=== PATIENT | female | born 1940 | race Caucasian/White ===

== ENCOUNTER 2017-01-01 14:31 | Inpatient (IN) ==
[2017-01-01] MEDS ORDERED: Naloxone 0.4 MG/ML INJ IVP PRN (17:31)
[2017-01-01] MEDS ORDERED: Ondansetron 4 MG/2 ML VIAL IVP PRN (17:31)
[2017-01-01] MEDS ORDERED: Acetaminophen 325 MG TABLET PO PRN (17:31)
[2017-01-01] MEDS ORDERED: *HR* HYDROcodone/Acet 5/325 mg TABLET PO PRN (17:31)
--- NOTE | 2017-01-01 17:45 | Internal Med History&Physical ---
<LilianasaraiisabellePerez nunes - Last Filed: 01/01/17 18:32> Date of Encounter: 01/01/17 Time of Encounter: 16:30 Assessment and Plan (1) Atrial fibrillation with RVR Status: Acute Acute on chronic atrial fibrillation w/RVR. Pt. reports Afib is paroxysmal. Rate in high 120s on admission. Denies currently taking any medication for rate control. Continuous cardiac telemetry. Cardizem drip started for rate control and rate is currently 10. Will titrate drip level as needed. Pt. at high risk for cardiac event based on current Afib w/RVR, acute exacerbation of CHF, current sx and hx, and risk factors. Inpatient. (2) Acute exacerbation of CHF (congestive heart failure) Status: Acute Acute exacerbation of CHF. BNP 498 on admission. Pt. denies hx of CHF but has hx of CAD and previous open-heart surgery. Reports SOB and is currently in Afib w/RVR. Will continue patient's hydrochlorothiazide. Monitor I&O. 1.5L daily fluid restriction. Continuous cardiac telemetry. Supplemental O2w/titration and SpO2 monitoring. Echocardiogram ordered. Qualifiers: Congestive heart failure type: unspecified congestive heart failure type Qualified Code(s): I50.9 - Heart failure, unspecified (3) Elevated troponin Status: Acute Acutely elevated troponin level on admission of 0.04. Pt. reports some chest pressure w/current sx of palpitations and RVR. Echocardiogram ordered. Continuous cardiac telemetry. Will trend troponin x2. Will consider cardiology consult based on echo results. (4) Dizziness Status: Acute Acute dizziness with SOB most likely d/t current Afib w/RVR. Falls/safety precautions. Supplemental O2 w/titration and SpO2 monitoring. Bilateral carotid Doppler duplex imaging ordered. (5) CAD (coronary artery disease) Status: Chronic Hx of chronic CAD. Pt. reports open-heart surgery three years ago. Continuous cardiac telemetry. Continue patient's Cozaar, metoprolol, hydrochlorothiazide, Crestor, and Coumadin with pharmacy dosing. Add aspirin therapy 81 mg daily. Qualifiers: Coronary Disease-Associated Artery/Lesion type: [place] artery [place] vs. transplanted heart: [place] heart Associated angina: angina presence unspecified Qualified Code(s): I25.10 - Atherosclerotic heart disease of [place] coronary artery without angina pectoris (6) HLD (hyperlipidemia) Status: Chronic Hx of chronic HLD. Lipid panel in a.m. labs. Continue pts. Crestor. Qualifiers: Hyperlipidemia type: pure hypercholesterolemia Qualified Code(s): E78.00 - Pure hypercholesterolemia, unspecified (7) HTN (hypertension) Status: Chronic Hx of chronic HTN. Monitor pt. and VS. Continue pts. Cozaar, metoprolol, and hydrochlorothiazide. Qualifiers: Hypertension type: essential hypertension Qualified Code(s): I10 - Essential (primary) hypertension (8) Thyroid disease Status: Chronic Hx of chronic thyroid disease. TSH ordered. Continue pts. Synthroid. (9) DVT prophylaxis Status: Acute Continue pts. Coumadin w/pharmacy dosing for DVT prophylaxis. Monitor pt. for signs of bleeding. Internal Medicine - H&P: HPI Chief complaint: Palpitations/SOB/Dizziness Admitted From: Emergency Dept Plans for Post Hospital Care: Home History of present illness: Ms. Person is a 76 year old female with medical hx of atrial fibrillation, coronary artery disease, DVT and PE (40 years ago) hyperlipidemia, hypertension , and thyroid disease presents with the ED with chief complaint of heart palpitations, bilateral leg weakness, shortness of breath, and dizziness for the past 3 days. Pt. reports having open heart surgery 3 years ago after being diagnosed with atrial fibrillation. States she is followed by Dr. Baires at [facility]. She states her atrial fibrillation is chronic and paroxysmal. Patient denies recent illness, fever, chills, nausea, vomiting, abdominal pain, diarrhea, constipation, headache, vision changes, unusual bleeding, pre-syncope , or syncope. Past Med Surg Social Fam HX - Past Medical History Source: patient, old records reviewed Medical history: atrial fibrillation, coronary artery disease, DVT (40 years ago ), hyperlipidemia, hypertension, pulmonary embolus (40 years ago), thyroid disease Psychiatric history: no psych history - Past Surgical History Surgical History: coronary bypass (CABG) - Social History Smoking Status: Former smoker Packs per day: 1 PPD - Reports quitting 6 years ago Smokeless Tobacco Status: No Alcohol use: none Drug use: none Occupational status: previously employed Current living situation: Home Activity Level: Uses cane/walker Recent Out of Country Travel Within the Last 8 Weeks: No Exposure or Possible Exposure to Illness During Travel: No - Family History Father Race: Family Member Ethnicity: Non- Living Status: Age at : 87 Cause of : Pneumonia Hx Family Respiratory Disorders: Yes (Pneumonia) Mother Race: Family Member Ethnicity: Non- Living Status: Age at : 81 Cause of : Pneumonia Hx Family Respiratory Disorders: Yes (Pneumonia) Brother Race: Family Member Ethnicity: Non- Living Status: Age at : 56 Cause of : Lung cancer Hx Family Cancer: Yes (Lung) Sister Race: Family Member Ethnicity: Non- Living Status: Age at : 65 Cause of : Polycystic kidney disease Hx Family Genitourinary Disorders: Yes (PKD) Internal Medicine - H&P: Meds Losartan [Cozaar] 50 mg PO DAILY 08/15/16 [History] Metoprolol Succinate 50 mg PO DAILY 08/15/16 [History] Rosuvastatin Calcium [Crestor] 10 mg PO DAILY 08/15/16 [History] Warfarin [Coumadin] 4 mg PO 1800 08/15/16 [History] Cholecalciferol (D-3) [Vitamin D] 2,000 unit PO DAILY 01/01/17 [History] Levothyroxine Sodium [Levo-T] 100 mcg PO DAILY 01/01/17 [History] Mv,Ca,Fe,Min/FA/[place]/Caff [One Daily Tablet] 1 tab PO DAILY 01/01/17 [History ] hydroCHLOROthiazide [Hydrochlorothiazide] 25 mg PO DAILY 01/01/17 [History] Furosemide [Lasix] 20 mg PO DAILY #30 tablet 01/04/17 [Rx] Metoprolol XL (24 HR) Succ [Toprol Xl] 75 mg PO DAILY #90 tab.er.24h 01/04/17 [ Rx] 3 Allergy/AdvReac Type Severity Reaction Status Date / Time Rjrvsey-Fov-Rhu Reductase AdvReac Weakness Verified 01/01/17 20:43 Inhibitor [Statins] All Systems PM: A 10-system review of systems was performed and is negative for pertinent findings except as documented above in the HPI. - Constitutional Constitutional: as per HPI, weakness (Bilateral leg weakness), no chills, no fever(s), no night sweats - EENT Eyes: no change in vision, no discharge, no pain, no photophobia Ears: no ear discharge, no ear pain, no tinnitus Nose, mouth and throat: no dysphagia, no nasal discharge, no neck pain, no sore throat - Breasts Breasts: as per HPI - Cardiovascular Cardiovascular ROS IM: as per HPI, chest pain (Pressure), dyspnea, dyspnea on exertion, irregular heart rhythm, lightheadedness, palpitations - Respiratory Respiratory: as per HPI, dyspnea, dyspnea on exertion - Gastrointestinal Gastrointestinal: no abdominal pain, no diarrhea, no hematemesis, no hematochezia, no melena, no nausea, no vomiting - Genitourinary Genitourinary: no change in urinary stream, no dysuria, no flank pain, no hematuria Menstruation: as per HPI - Musculoskeletal Musculoskeletal ROS IM: no numbness, no tingling - Integumentary Integumentary IM: no rash, no unusual bruising - Neurological Neurological ROS: no confusion, no convulsions, no focal weakness, no numbness, no tingling, no tremor(s) - Psychiatric Psychiatric: as per HPI - Endocrine Endocrine IM: as per HPI - Hematologic/Lymphatic Hematologic/Lymphatic: no easy bruising - Allergic/Immunologic Allergic/Immunologic: as per HPI - Constitutional Vitals: Temp Pulse Resp BP Pulse Ox 97.3 F L 127 18 118/90 95 01/01/17 16:20 01/01/17 17:00 01/01/17 17:00 01/01/17 17:00 01/01/17 17:00 General appearance: Present: cooperative, A&O X 3, morbidly obese, pleasant, no acute distress, answers questions appropriately - Head Head exam: Present: atraumatic, normal inspection, normocephalic - Eye Eye exam: Present: PERRL, conjuntiva pink, sclera anicteric Pupils: Present: PERRL - ENT ENT exam: Present: normal exam, normal external ear exam - Neck Neck exam general surgery: Present: normal inspection, supple, trachea midline. Absent: lymphadenopathy - Respiratory Respiratory exam: Present: CTAB. Absent: accessory muscle use, rales, rhonchi, wheezes - Cardiovascular Cardiovascular exam: Present: irregular rhythm - GI/Abdominal GI/Abdominal exam: Present: normal bowel sounds, soft, no peritoneal signs. Absent: distended, tenderness - Rectal Rectal exam: Present: deferred - Additional comments: exam deferred. - Extremities Exam Extremities exam: Present: warm, radial pulses palpable and symmetrical. Absent : calf tenderness, cyanotic, pedal edema - Back Exam Back exam: Present: normal inspection - Neurological Exam Neurological exam: Present: CN II-XII intact, oriented X3, no focal deficits. Absent: pronater drift, facial droop, speech deficit - Psychiatric Psychiatric exam: Present: normal affect, normal mood - Skin Skin exam: Present: dry, intact Additional comments: Healing skin ulcer of the left lower extremity which pt. states she has had a lot of problems with in the past. States wound was deep. Internal Med - H&P Results - Diagnostic Studies Chest x-ray Additional comments: XR/XR chest 1V portable IMPRESSION: No acute cardiopulmonary abnormality. <Gutierrez Alvarez P - Last Filed: 01/05/17 12:13> Date of Encounter: 01/05/17 Internal Medicine - H&P: HPI History of present illness: Ms. Person is a 76 year old female All Systems PM: A 10-system review of systems was performed and is negative for pertinent findings except as documented above in the HPI. - Constitutional Vitals: Temp Pulse Resp BP Pulse Ox 98.2 F 68 18 111/62 93 01/04/17 07:03 01/04/17 07:56 01/04/17 07:03 01/04/17 07:03 01/04/17 07:03 Internal Med - H&P Results - Labs CBC & Chem 7: 01/04/17 04:00 01/04/17 04:00 - Impressions ITS Impressions Echocardiogram 01/02/17 07:00 Impressions: LVEF 55%. Normal LV chamber size and function. Mild to moderate concentric left ventricular hypertrophy. Indeterminate diastolic function. Right ventricle was not well visualized. Grossly, it appears mildly dilated with normal function. Bioprostetic aortic valve per reports. Grossly, appears well seated in the LVOT. Leaflets not well visualized. No aortic regurgitation. No aortic stenosis. Mean gradient 5 mmHg. No evidence of pulmonary hypertension. Left Ventricular Wall Motion: Rest Echo Findings All wall segments showed normal motion. Findings: Study Quality * Technically sub-optimal due to poor echocardiographic windows. ECG Findings * Atrial fibrillation. Left Ventricle * LVEF 55%. * Normal LV chamber size and function. * Mild to moderate concentric left ventricular hypertrophy. * Indeterminate diastolic function. Right Ventricle * Right ventricle was not well visualized. Grossly, it appears mildly dilated with normal function. Left Atrium * Moderately dilated left atrium. Right Atrium * Mildly dilated right atrium. Interatrial Septum * Interatrial septum not well evaluated. Aortic Valve * Bioprostetic aortic valve per reports. Grossly, appears well seated in the LVOT. Leaflets not well visualized. * No aortic regurgitation. * No aortic stenosis. Mean gradient 5 mmHg. Mitral Valve * Moderate posterior mitral annular calcification. * Trace mitral regurgitation. * No mitral stenosis. Tricuspid Valve * Normal tricuspid valve structure and function. * Trace tricuspid regurgitation. * No evidence of pulmonary hypertension. Pulmonic Valve * Normal pulmonic valve structure and function. * Trace pulmonic regurgitation. Aorta * Normally sized aortic root. Pericardium * The pericardium appears normal. IVC * Normal IVC dimensions and inspiratory collapse. Pulmonary Artery * Normal visualized portions of the main pulmonary artery. - Attending Attestation I examined this patient and my medical decision-making was reviewed with the Resident Physician/OUTER DIAMETER GRINDER. I agree with the documented findings, disposition and treatment plan as described except to the extent set forth below. agree with plan
[2017-01-01] MEDS ORDERED: Warfarin perPT PO PRN (18:00)
[2017-01-01] MEDS ORDERED: *HR* Warfarin 4 MG TABLET PO SCH (18:46)
[2017-01-01] MEDS: Aspirin Enteric Coated 81 MG Tablet PO SCH (18:48)
[2017-01-01] MEDS ORDERED: *HR* Warfarin 2 MG TABLET PO ONE (18:54)
[2017-01-02] MEDS: dilTIAZem HCl 100 MG in D5% in Water 50 ML IVC SCH ×3 (00:06→16:22)
[2017-01-02 01:18] LABS: Basophils # 0.1 K/mcL (0.0-0.2); Basophils % 0.9 %; Eosinophils # 0.3 K/mcL (0.0-0.6); Eosinophils % 3.7 %; Hematocrit 42.1 % (35.3-44.9); Hemoglobin 13.6 g/dL (11.5-15.4); Immature Granulocytes % 0.4 % (0-4); Lymphocytes # 1.6 K/mcL (0.6-4.6); Lymphocytes % 17.3 %; Mean Corpuscular HGB Conc 32.3 g/dL (31.6-35.5); Mean Corpuscular Hemoglobin 29.6 pg (28.0-33.3); Mean Corpuscular Volume 91.5 fL (83.0-100.0); Monocytes # 0.8 K/mcL (0.0-1.3); Monocytes % 9.1 %; Neutrophils # 6.2 K/mcL (1.6-8.9); Platelet Count 187 K/mcL (140-400); Red Cell Distribution Width 15.4 % (11.5-14.5); Segmented Neutrophils % 68.6 %
[2017-01-02 01:21] LABS: INR 2.6; Prothrombin Time 29.1 Seconds (9.4-12.1)
[2017-01-02 01:23] LABS: Activated Partial Thrombo Time 34.4 Seconds (26.0-36.0)
[2017-01-02 01:29] LABS: Hemoglobin A1C 6.1 %
[2017-01-02 01:36] LABS: Alanine Aminotransferase 28 Units/L (0-55); Albumin 2.9 g/dL (3.5-5.0); Albumin/Globulin Ratio 0.9 (1.1-2.2); Alkaline Phosphatase 70 Units/L (38-126); Aspartate Amino Transferase 16 Units/L (5-34); BUN/Creatinine Ratio 19 (6-26); Bilirubin,Total 0.2 mg/dL (0.2-1.2); Blood Urea Nitrogen 18 mg/dL (7-20); Calcium 8.9 mg/dL (8.6-10.8); Carbon Dioxide 26 mEq/L (19-29); Chloride 105 mEq/L (98-109); Chol/HDL Ratio 3.6 (0-4.9); Cholesterol 126 mg/dL (< 200); Globulin 3.1 g/dL (2.4-3.5); Glucose 136 mg/dL (70-99); HDL Cholesterol 35 mg/dL (40-59); LDL Cholesterol,Calculated 62 mg/dL (0-99); Magnesium 1.8 mg/dL (1.6-2.6); Osmolality,Calculated 294 (280-300); Potassium 3.7 mEq/L (3.5-4.5); Sodium 140 mEq/L (136-145); Triglycerides 143 mg/dL (< 150); eGFR For African Americans > 60 (> 60); eGFR For Non-African Americans 57 (> 60)
[2017-01-02 01:53] LABS: Thyroid Stimulating Hormone 2.537 mcIU/mL (0.350-4.840)
[2017-01-02] MEDS: Aspirin Enteric Coated 81 MG Tablet PO SCH (07:50)
[2017-01-02] MEDS ORDERED: hydroCHLOROthiazide 25 MG TABLET PO SCH (09:00)
[2017-01-02] MEDS ORDERED: Metoprolol XL (24 HR) Succ 25 MG TAB.ER.24H PO SCH (09:00)
--- NOTE | 2017-01-02 10:34 | Internal Med Progress Note ---
<Jordi Davidson - Last Filed: 01/02/17 15:35> Date of Encounter: 01/02/17 Time of Encounter: 10:00 - Assessment and plan (1) Atrial fibrillation with RVR Current Visit: Yes Status: Acute Assessment and plan: ED course: 20mg IV push with transition to drip, currently 10mg/hr, RVR abated, currently tachycardic with irregular rhythm. Monitor with telemetry. Echocardiogram ordered. Cardiology consulted. (2) Acute exacerbation of CHF (congestive heart failure) Current Visit: Yes Status: Acute Assessment and plan: BNP 498 on admission. No known history of CHF. LVEF 55% Diastolic function read as indeterminate. Continuing HCTZ, on 1.5L daily fluid restriction. On 2L O2 NC Qualifiers: Congestive heart failure type: unspecified congestive heart failure type Qualified Code(s): I50.9 - Heart failure, unspecified (3) HLD (hyperlipidemia) Current Visit: Yes Status: Chronic Assessment and plan: On 10mg Crestor, has never been on 20mg as per hi-intensity AHA/ACC recommendations Consider increasing Crestor to 20mg; monitor clinically for myalgias. Qualifiers: Hyperlipidemia type: pure hypercholesterolemia Qualified Code(s): E78.00 - Pure hypercholesterolemia, unspecified; E78.0 - Pure hypercholesterolemia (4) HTN (hypertension) Current Visit: Yes Status: Chronic Qualifiers: Hypertension type: essential hypertension Qualified Code(s): I10 - Essential (primary) hypertension (5) Dizziness Current Visit: Yes Status: Acute Assessment and plan: Not currently symptomatic. Likely from the afib-RVR. Monitoring on telemetry, as above. (6) Thyroid disease Current Visit: Yes Status: Chronic Assessment and plan: Continue Synthroid 88mcg, pt currently euthyroid. (7) Elevated troponin Current Visit: Yes Status: Acute Assessment and plan: ED ECG showed st segment depression, likely demand ischemia (.04, .05, .05, .05) (8) CAD (coronary artery disease) Current Visit: Yes Status: Chronic Assessment and plan: Continue Cozaar, metoprolol, HCTZ, Crestor, coumadin. Now on ASA. Consider increase to Crestor if pt tolerates outpatient, pt denies trial of 20mg , no hx myalgias. Qualifiers: Coronary Disease-Associated Artery/Lesion type: [place] artery [place] vs. transplanted heart: [place] heart Associated angina: angina presence unspecified Qualified Code(s): I25.10 - Atherosclerotic heart disease of [place] coronary artery without angina pectoris (9) DVT prophylaxis Current Visit: Yes Status: Acute Assessment and plan: Coumadin w/ pharmacy to dose. No evidence of bleed on exam, labs. - Subjective Interval history: Ms. Person, 76F, past medical history of paroxysmal AFib diagnosed 3 years ago , anticoagulated on coumadin, presented with complaint of new onset palpitations and mild shortness of breath to ED yesterday. ECG showed afib with RVR, st depressions, likely demand ischemia, given 20mg IV Cardizem, on 10mg/hr now, no RVR, however, pt rate in 120s and irregular. Sees a Dr. Todd, cardiology, has her on Toprol 50mg. Pt reports no episodes like this before; has had Maze procedure 10/06/13 for AFib, at time considered resolved. During same surgery, aortic valve replaced due to aortic stenosis ([place] pericardial aortic valve). No known hx CHF, pt's BNP 498 on admission. Echo ordered. Today: pt is accompanied by son, denies shortness of breath, has not noticed any palpitations, is open to the idea of adding an antiarrhythmic to take at home, no worsening shortness of breath, no home O2, on 2L NC currently. - Constitutional Vitals: Temp Pulse Resp BP Pulse Ox 98.1 F 105 92 110/99 95 01/02/17 07:40 01/02/17 07:40 01/02/17 10:30 01/02/17 07:40 01/02/17 07:40 General appearance: Present: cooperative, A&O X 3, morbidly obese, pleasant, no acute distress, answers questions appropriately - Head Head exam: Present: atraumatic - Neck Neck exam general surgery: Present: full ROM - Respiratory Respiratory exam: Present: CTAB. Absent: rhonchi - Cardiovascular Cardiovascular exam: Present: irregular rhythm, +S1, +S2, tachycardia. Absent: JVD - Extremities Exam Extremities exam: Absent: calf tenderness, tenderness Additional comments: LLE old ulcer well-healed. No erythema. - Neurological Exam Neurological exam: Present: no focal deficits. Absent: facial droop, speech deficit Internal Medicine: Result - Labs CBC & Chem 7: 01/02/17 00:45 01/02/17 00:45 Labs: Short CBC 01/02/17 Range/Units 00:45 WBC 9.1 (4.3-11.1) K/mcL Hgb 13.6 (11.5-15.4) g/dL Hct 42.1 (35.3-44.9) % Plt Count 187 (140-400) K/mcL Neutrophils # 6.2 (1.6-8.9) K/mcL BMP 01/02/17 00:45 Sodium 140 Potassium 3.7 Chloride 105 Carbon Dioxide 26 BUN 18 Creatinine 0.95 Glucose 136 H Calcium 8.9 Cardiac Enzymes 01/01/17 01/02/17 01/02/17 Range/Units 18:27 00:45 07:10 Troponin I 0.05 H* 0.05 H* 0.05 H* (0-0.03) ng/mL Liver Function 01/02/17 Range/Units 00:45 Total Bilirubin 0.2 (0.2-1.2) mg/dL AST 16 (5-34) Units/L ALT 28 (0-55) Units/L Alkaline Phosphatase 70 (38-126) Units/L Albumin 2.9 L (3.5-5.0) g/dL - ABG Interpretation ABG results: PT/INR, D-dimer PT 29.1 Seconds (9.4-12.1) H 01/02/17 00:45 Consult Discharge Plan - Plan Referrals: Jojo Gonzalez MD [Primary Care Provider] - 01/09/17 1:30 pm <Julio Garcia - Last Filed: 01/02/17 18:09> Date of Encounter: 01/02/17 - Constitutional Vitals: Temp Pulse Resp BP Pulse Ox 97.7 F 130 18 105/85 91 01/02/17 16:28 01/02/17 17:04 01/02/17 16:28 01/02/17 17:04 01/02/17 16:28 Internal Medicine: Result - Labs CBC & Chem 7: 01/02/17 00:45 01/02/17 00:45 Labs: Short CBC 01/02/17 Range/Units 00:45 WBC 9.1 (4.3-11.1) K/mcL Hgb 13.6 (11.5-15.4) g/dL Hct 42.1 (35.3-44.9) % Plt Count 187 (140-400) K/mcL Neutrophils # 6.2 (1.6-8.9) K/mcL BMP 01/02/17 00:45 Sodium 140 Potassium 3.7 Chloride 105 Carbon Dioxide 26 BUN 18 Creatinine 0.95 Glucose 136 H Calcium 8.9 Cardiac Enzymes 01/01/17 01/02/17 01/02/17 Range/Units 18:27 00:45 07:10 Troponin I 0.05 H* 0.05 H* 0.05 H* (0-0.03) ng/mL Liver Function 01/02/17 Range/Units 00:45 Total Bilirubin 0.2 (0.2-1.2) mg/dL AST 16 (5-34) Units/L ALT 28 (0-55) Units/L Alkaline Phosphatase 70 (38-126) Units/L Albumin 2.9 L (3.5-5.0) g/dL - ABG Interpretation ABG results: PT/INR, D-dimer PT 29.1 Seconds (9.4-12.1) H 01/02/17 00:45 - Impressions Impressions Echocardiogram 01/02/17 07:00 Impressions: LVEF 55%. Normal LV chamber size and function. Mild to moderate concentric left ventricular hypertrophy. Indeterminate diastolic function. Right ventricle was not well visualized. Grossly, it appears mildly dilated with normal function. Bioprostetic aortic valve per reports. Grossly, appears well seated in the LVOT. Leaflets not well visualized. No aortic regurgitation. No aortic stenosis. Mean gradient 5 mmHg. No evidence of pulmonary hypertension. Left Ventricular Wall Motion: Rest Echo Findings All wall segments showed normal motion. Findings: Study Quality * Technically sub-optimal due to poor echocardiographic windows. ECG Findings * Atrial fibrillation. Left Ventricle * LVEF 55%. * Normal LV chamber size and function. * Mild to moderate concentric left ventricular hypertrophy. * Indeterminate diastolic function. Right Ventricle * Right ventricle was not well visualized. Grossly, it appears mildly dilated with normal function. Left Atrium * Moderately dilated left atrium. Right Atrium * Mildly dilated right atrium. Interatrial Septum * Interatrial septum not well evaluated. Aortic Valve * Bioprostetic aortic valve per reports. Grossly, appears well seated in the LVOT. Leaflets not well visualized. * No aortic regurgitation. * No aortic stenosis. Mean gradient 5 mmHg. Mitral Valve * Moderate posterior mitral annular calcification. * Trace mitral regurgitation. * No mitral stenosis. Tricuspid Valve * Normal tricuspid valve structure and function. * Trace tricuspid regurgitation. * No evidence of pulmonary hypertension. Pulmonic Valve * Normal pulmonic valve structure and function. * Trace pulmonic regurgitation. Aorta * Normally sized aortic root. Pericardium * The pericardium appears normal. IVC * Normal IVC dimensions and inspiratory collapse. Pulmonary Artery * Normal visualized portions of the main pulmonary artery. - Attending Attestation I conducted a face to face diagnostic evaluation of this patient and my medical decision-making was reviewed with the Resident Physician, Dr. Jordi Davidson. I agree with the documented findings, disposition and treatment plan as described except to the extent set forth below: Patient presented to the hospital with palpitations. On exam she is in no acute distress. Heart exam reveals tachycardic irregular S1 and S2 with no murmurs. Lungs with fine crackles. Lower extremities trace edema. Laboratory data was reviewed. Plan: Rate control with IV Cardizem drip. Will obtain echocardiogram. Consult cardiology. Continue IV Lasix. Strict I's and O's. Daily weights. Cardiac troponin. She is at high risk due to IV Cardizem drip which needs titration according to blood pressure and heart rate. All problems are new to me today.
--- NOTE | 2017-01-02 14:11 | Cardiology Consult Note ---
<Dede Rivera - Last Filed: 01/02/17 16:39> Date of Encounter: 01/02/17 Time of Encounter: 02:30 Assessment and Plan (1) Atrial fibrillation with RVR Current Visit: Yes Status: Acute Patient presented with SOB, chest tightness, and palpitations found to be in Afib with RVR. Patient's home medications include Coumadin and metoprolol 50mg daily. Vitals: HR between 125 to 108 since admission. BP wnl. NC on 2L at 94%. Labs: Troponin 0.05 x 3, stable unchanged in the setting of Afib with RVR. Creatinine 0.95. CXR: No acute cardiopulmonary abnormality. Echo showed 55%, bioprostetic aortic valve, no aortic regurgitation, mildly dilated RV with normal function. Primary team has placed patient on Diltiazem currently at a rate of 10ml/hr, increasing up to 12.5ml/hr as patient is still in afib with RVR . Lasix 20mg IVP daily. Patient has been therapeutic on coumadin. If patient does not convert overnight will consider cardioversion in the morning. Will make patient NPO after midnight. Telemetry: Still in Afib with RVR Plan: - if patient is still in Afib, will cardiovert tomorrow - NPO at midnight - will decrease losartin to 25mg daily - increase metoprolol to 75 mg po daily. Will give 25mg tonight and begin 75mg po tomorrow. - continue Diltiazem titration -continue telemetry - d/c hydrochlorothiazide - continue Coumadin, pharmacy to dose - continue Asa, Crestor, Metoprolol Discussion w patient/family: The assessment and plan as outlined above was discussed with the patient and/or family members who expressed understanding and agreement. All questions were answered. Thank you for involving us in the care of your patient. Please call with any questions. History of Present Illness Consult date: 01/02/17 Requesting physician: Jordi Davidson Consult reason: Afib- RVR, possible CHF Chief complaint: lightheaded, dizziness, sob, and chest tightness History of present illness: Ms. 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 Home medications include coumadin and metoprolol. Patient states that she has no recent change in weight. Patient states though that she has been sleeping in a recliner, admits to orthopnea with 2 pillows, denies PND. 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 Definity was not given.Mild concentric hypertrophy of the left ventricle. There is evidence of mild diastolic dysfunction of the left ventricle.Mildly enlarged left atrial size. Normal right ventricular size and function.Normal right atrial size. Severe aortic stenosis. Mild aortic regurgitation. Past Med Surg Social Fam HX - Past Medical History Medical history: atrial fibrillation, coronary artery disease, DVT (40 years ago ), hyperlipidemia, hypertension, pulmonary embolus (40 years ago), thyroid disease Psychiatric history: no psych history - Past Surgical History Surgical History: coronary bypass (CABG) - Social History Smoking Status: Former smoker Packs per day: 1 PPD - Reports quitting 6 years ago Smokeless Tobacco Status: No Alcohol use: none Drug use: none - Family History Father Race: Family Member Ethnicity: Non- Living Status: Age at : 87 Cause of : Pneumonia Hx Family Respiratory Disorders: Yes (Pneumonia) Mother Race: Family Member Ethnicity: Non- Living Status: Age at : 81 Cause of : Pneumonia Hx Family Respiratory Disorders: Yes (Pneumonia) Brother Race: Family Member Ethnicity: Non- Living Status: Age at : 56 Cause of : Lung cancer Hx Family Cancer: Yes (Lung) Sister Race: Family Member Ethnicity: Non- Living Status: Age at : 65 Cause of : Polycystic kidney disease Hx Family Genitourinary Disorders: Yes (PKD) Medications and Allergies Losartan [Cozaar] 50 mg PO DAILY 08/15/16 [History] Metoprolol Succinate 50 mg PO DAILY 08/15/16 [History] Rosuvastatin Calcium [Crestor] 10 mg PO DAILY 08/15/16 [History] Warfarin [Coumadin] 4 mg PO 1800 08/15/16 [History] Cholecalciferol (D-3) [Vitamin D] 2,000 unit PO DAILY 01/01/17 [History] Levothyroxine Sodium [Levo-T] 100 mcg PO DAILY 01/01/17 [History] Mv,Ca,Fe,Min/FA/[place]/Caff [One Daily Tablet] 1 tab PO DAILY 01/01/17 [History ] hydroCHLOROthiazide [Hydrochlorothiazide] 25 mg PO DAILY 01/01/17 [History] 3 Allergy/AdvReac Type Severity Reaction Status Date / Time Dahpsgg-[id number]-[id number] Reductase AdvReac Weakness Verified 01/01/17 20:43 Inhibitor [Statins] All Systems Review: A 10-system review of systems was performed and is negative for pertinent findings except as documented above in the HPI. Physical Examination Vital Signs, Last 4 Hours Temp Pulse Resp BP Pulse Ox 01/02/17 13:47 110 105/62 01/02/17 11:03 97.0 F L 126 16 127/97 94 01/02/17 10:30 92 General: Conversant, No Apparent Distress HEENT: Atraumatic, Normocephaly, Mucus Membranes Moist Neck: No JVD Cardiac: No Murmur, Other (irregular irregular ) Lungs: Normal Breath Sounds, No Wheeze, Rales, Rhonchi Neuro: Alert and responsive, No focal deficits noted Abdomen: Soft, Non-Tender Skin: No rashes noted on visualized skin Musculoskeletal: No Chest Wall Tenderness Extremities: No Clubbing, No Cyanosis, No Edema, Normal Pulses Results 01/02/17 00:45 01/02/17 00:45 Lab Results 01/01/17 01/02/17 01/02/17 18:27 00:45 00:45 WBC 9.1 Hgb 13.6 Hct 42.1 Plt Count 187 INR APTT Sodium Potassium Chloride Carbon Dioxide BUN Creatinine Glucose Calcium Magnesium Total Bilirubin AST ALT Alkaline Phosphatase Troponin I 0.05 H* 0.05 H* TSH 01/02/17 01/02/17 01/02/17 00:45 00:45 07:10 WBC Hgb Hct Plt Count INR 2.6 APTT 34.4 Sodium 140 Potassium 3.7 Chloride 105 Carbon Dioxide 26 BUN 18 Creatinine 0.95 Glucose 136 H Calcium 8.9 Magnesium 1.8 Total Bilirubin 0.2 AST 16 ALT 28 Alkaline Phosphatase 70 Troponin I 0.05 H* TSH 2.537 - Imaging and Cardiology Echo: report reviewed Other Results: carotid duplex - report reviewed: R distal ICA severe, 60-79% stenosis - EKG Interpretation EKG results cardiology: personally reviewed Consult Discharge Plan - Plan Referrals: Jojo Gonzalez MD [Primary Care Provider] - 01/09/17 1:30 pm <Seema Delgado - Last Filed: 01/02/17 17:33> Date of Encounter: 01/02/17 - Attending Attestation I examined this patient and my medical decision-making was reviewed with the Resident Physician. I agree with the documented findings, disposition and treatment plan. Ms. Person presents with symptoms of palpitations over the past week and was found to be in AF RVR. She has a history of AF having undergone MAZE procedure with AVR in 2013. She has largely been symptom free since that time until recently. Workup so far has demonstrated normal LV systolic function, a normal functioning aortic bioprosthetic valve and normal RV function. Troponins flat and adynamic 0.05 x3 which are not indicative of ACS. We recommend uptitrating her dose of metoprolol and continuing IV diltiazem. Primary team is diuresing for fluid overload, probably diastolic dysfunction. Recommended to the patient she consider DCCV tomorrow. She has been therapeutic on coumadin for the past month. The R/B/A of the procedure were discussed with the patient. She would like to discuss with family first. Will keep NPO in anticipation of the procedure. Also would recommend outpatient workup for MARGIE. Assessment and Plan Discussion w patient/family: The assessment and plan as outlined above was discussed with the patient and/or family members who expressed understanding and agreement. All questions were answered. Thank you for involving us in the care of your patient. Please call with any questions. History of Present Illness History of present illness: Ms. Person is a 76 year old female All Systems Review: A 10-system review of systems was performed and is negative for pertinent findings except as documented above in the HPI. Physical Examination Vital Signs, Last 4 Hours Temp Pulse Resp BP Pulse Ox 01/02/17 17:04 130 105/85 01/02/17 16:28 97.7 F 113 18 103/79 91 01/02/17 16:25 88 01/02/17 16:17 105 01/02/17 16:00 128 103/79 01/02/17 15:00 116 103/73 01/02/17 13:47 110 105/62 Results 01/02/17 00:45 01/02/17 00:45 Lab Results 01/01/17 01/02/17 01/02/17 18:27 00:45 00:45 WBC 9.1 Hgb 13.6 Hct 42.1 Plt Count 187 INR APTT Sodium Potassium Chloride Carbon Dioxide BUN Creatinine Glucose Calcium Magnesium Total Bilirubin AST ALT Alkaline Phosphatase Troponin I 0.05 H* 0.05 H* TSH 01/02/17 01/02/17 01/02/17 00:45 00:45 07:10 WBC Hgb Hct Plt Count INR 2.6 APTT 34.4 Sodium 140 Potassium 3.7 Chloride 105 Carbon Dioxide 26 BUN 18 Creatinine 0.95 Glucose 136 H Calcium 8.9 Magnesium 1.8 Total Bilirubin 0.2 AST 16 ALT 28 Alkaline Phosphatase 70 Troponin I 0.05 H* TSH 2.537
[2017-01-02] MEDS: Furosemide 20 MG/2 ML VIAL IVP SCH (16:22)
[2017-01-02] MEDS: *HR* Warfarin 4 MG TABLET PO SCH (16:22)
[2017-01-02] MEDS: Metoprolol XL (24 HR) Succ 25 MG TAB.ER.24H PO SCH (17:08)
[2017-01-03 06:21] LABS: Hematocrit 40.9 % (35.3-44.9); Hemoglobin 12.9 g/dL (11.5-15.4); Mean Corpuscular HGB Conc 31.5 g/dL (31.6-35.5); Mean Corpuscular Hemoglobin 29.5 pg (28.0-33.3); Mean Corpuscular Volume 93.6 fL (83.0-100.0); Mean Platelet Volume 11.7 fL (9.4-12.4); Platelet Count 182 K/mcL (140-400); Red Blood Count 4.37 M/mcL (3.82-4.97); Red Cell Distribution Width 15.6 % (11.5-14.5)
[2017-01-03 06:22] LABS: Basophils # 0.1 K/mcL (0.0-0.2); Basophils % 0.5 %; Eosinophils # 0.4 K/mcL (0.0-0.6); Eosinophils % 3.3 %; Immature Granulocytes % 0.3 % (0-4); Lymphocytes # 1.4 K/mcL (0.6-4.6); Lymphocytes % 13.4 %; Monocytes # 0.9 K/mcL (0.0-1.3); Monocytes % 8.5 %; Neutrophils # 7.9 K/mcL (1.6-8.9)
[2017-01-03 06:27] LABS: INR 2.6
[2017-01-03 06:44] LABS: Alanine Aminotransferase 20 Units/L (0-55); Albumin 2.8 g/dL (3.5-5.0); Albumin/Globulin Ratio 0.9 (1.1-2.2); Alkaline Phosphatase 65 Units/L (38-126); Aspartate Amino Transferase 11 Units/L (5-34); BUN/Creatinine Ratio 24 (6-26); Bilirubin,Total 0.4 mg/dL (0.2-1.2); Blood Urea Nitrogen 20 mg/dL (7-20); Calcium 8.4 mg/dL (8.6-10.8); Carbon Dioxide 26 mEq/L (19-29); Chloride 106 mEq/L (98-109); Glucose 107 mg/dL (70-99); Osmolality,Calculated 295 (280-300); Potassium 3.7 mEq/L (3.5-4.5); Sodium 141 mEq/L (136-145); Total Protein 5.8 g/dL (6.0-8.3); eGFR For African Americans > 60 (> 60); eGFR For Non-African Americans > 60 (> 60)
[2017-01-03] MEDS: dilTIAZem HCl 100 MG in D5% in Water 50 ML IVC SCH ×2 (08:18→11:20)
[2017-01-03] MEDS: Aspirin Enteric Coated 81 MG Tablet PO SCH (08:26)
[2017-01-03] MEDS: Metoprolol XL (24 HR) Succ 25 MG TAB.ER.24H PO SCH (08:26)
[2017-01-03] MEDS: Furosemide 20 MG/2 ML VIAL IVP SCH (09:30)
--- NOTE | 2017-01-03 11:17 | Cardiology Progress Note ---
<Dede Rivera - Last Filed: 01/03/17 11:06> Date of Encounter: 01/03/17 Time of Encounter: 07:35 Assessment and Plan (1) Atrial fibrillation with RVR Current Visit: Yes Status: Acute Patient presented with SOB, chest tightness, and palpitations found to be in Afib with RVR. Patient's home medications include Coumadin and metoprolol 50mg daily. Vitals: HR between 125 to 108 since admission. BP wnl. NC on 2L at 94%. Labs: Troponin 0.05 x 3, stable unchanged in the setting of Afib with RVR. Creatinine 0.95. CXR: No acute cardiopulmonary abnormality. Echo showed 55%, bioprostetic aortic valve, no aortic regurgitation, mildly dilated RV with normal function. Telemetry: Avg rate: 64bpm, sinus rhythm. Patient converted to sinus rhythm yesterday afternoon. Will continue metoprolol 75mg daily for home. F/u with Dr. Baires in 3-4 weeks. Plan: - decrease losartin to 25mg daily - increase metoprolol to 75 mg po daily. -continue telemetry - cardiac diet - continue Coumadin, pharmacy to dose - continue Asa, Crestor - recommend d/c home with metoprolol 75 mg daily - f/u with Dr. Baires Discussion w patient/family: The assessment and plan as outlined above was discussed with the patient and/or family members who expressed understanding and agreement. All questions were answered. Thank you for involving us in the care of your patient. Please call with any questions. Subjective Principal diagnosis: Afib with RVR Interval history: Patient states that she is feeling much better since going back into sinus rhythm yesterday. Objective Vital Signs, Last 4 Hours Pulse 01/03/17 08:31 64 General: Conversant, No Apparent Distress HEENT: Atraumatic, Normocephaly, Mucus Membranes Moist Neck: No JVD Cardiac: Reg Rate and Rhythm, Normal S1 and S2, No Murmur Lungs: Normal Breath Sounds, No Wheeze, Rales, Rhonchi Neuro: Alert and responsive, No focal deficits noted Abdomen: Soft, Non-Tender Skin: No rashes noted on visualized skin Extremities: No Clubbing, No Cyanosis, No Edema, Normal Pulses Results 01/03/17 06:02 01/03/17 06:02 Lab Results 01/03/17 01/03/17 01/03/17 06:02 06:02 06:02 WBC 10.7 Hgb 12.9 Hct 40.9 Plt Count 182 INR 2.6 Sodium 141 Potassium 3.7 Chloride 106 Carbon Dioxide 26 BUN 20 Creatinine 0.84 Glucose 107 H Calcium 8.4 L Total Bilirubin 0.4 AST 11 ALT 20 Alkaline Phosphatase 65 Consult Discharge Plan - Plan Referrals: Jojo Gonzalez MD [Primary Care Provider] - 01/09/17 1:30 pm <Seema Delgado - Last Filed: 01/03/17 12:47> Date of Encounter: 01/03/17 Assessment and Plan Discussion w patient/family: I examined this patient and my medical decision-making was reviewed with the Resident Physician. I agree with the documented findings, disposition and treatment plan. Ms. Person converted to normal sinus rhythm overnight. She is feeling much better today. We uptitrated her beta le and lowered her losartan to accommodate for blood pressure. Recommend uptitrating BB as tolerated as an outpatient. Her echo returned demonstrating normal LV systolic function, normal function of her bioprosthetic valve and normal RV function. Average HR on telemetry was 64 bpm. Continue coumadin for anticoagulation. She is also net negative 2L, has improved LE edema and not requiring supplemental oxygen. Can consider restarting her home dose of HCTZ. Recommend outpatient follow up with her primary detention worker. Will sign off. Please call with questions. Objective Vital Signs, Last 4 Hours Temp Pulse Resp BP Pulse Ox 01/03/17 11:46 65 01/03/17 11:06 98.3 F 67 17 126/68 93 Results 01/03/17 06:02 01/03/17 06:02 Lab Results 01/03/17 01/03/17 01/03/17 06:02 06:02 06:02 WBC 10.7 Hgb 12.9 Hct 40.9 Plt Count 182 INR 2.6 Sodium 141 Potassium 3.7 Chloride 106 Carbon Dioxide 26 BUN 20 Creatinine 0.84 Glucose 107 H Calcium 8.4 L Total Bilirubin 0.4 AST 11 ALT 20 Alkaline Phosphatase 65
--- NOTE | 2017-01-03 15:30 | Internal Med Progress Note ---
<Jordi Davidson - Last Filed: 01/03/17 15:42> Date of Encounter: 01/03/17 Time of Encounter: 10:00 - Assessment and plan (1) Atrial fibrillation with RVR Current Visit: Yes Status: Acute Assessment and plan: ED course: 20mg IV push with transition to drip, currently 10mg/hr, RVR abated, currently tachycardic with irregular rhythm. Monitor with telemetry. Echocardiogram ordered. Cardiology consulted. Diltiazem 12.5mg/hr converted pt to NSR. Toprol to be increased to 75mg po daily. Continue at discharge. Losartan 25mg po daily. Continue at discharge. f/u with Dr. Baires w/in 1-2weeks. (2) Acute exacerbation of CHF (congestive heart failure) Current Visit: Yes Status: Acute Assessment and plan: BNP 498 on admission. No known history of CHF. LVEF 55% Diastolic function read as indeterminate. Discontinue HCTZ, on 1.5L daily fluid restriction. On 2L O2 NC Started on Lasix 20mg daily. Can increase to 40mg daily. Qualifiers: Congestive heart failure type: unspecified congestive heart failure type Qualified Code(s): I50.9 - Heart failure, unspecified (3) HLD (hyperlipidemia) Current Visit: Yes Status: Chronic Assessment and plan: On 10mg Crestor, has never been on 20mg as per hi-intensity AHA/ACC recommendations Consider increasing Crestor to 20mg; monitor clinically for myalgias. Qualifiers: Hyperlipidemia type: pure hypercholesterolemia Qualified Code(s): E78.00 - Pure hypercholesterolemia, unspecified; E78.0 - Pure hypercholesterolemia (4) HTN (hypertension) Current Visit: Yes Status: Chronic Qualifiers: Hypertension type: essential hypertension Qualified Code(s): I10 - Essential (primary) hypertension (5) Dizziness Current Visit: Yes Status: Acute Assessment and plan: Not currently symptomatic. Likely from the afib-RVR. Monitoring on telemetry, as above. NSR after 12.5mg diltiazem. (6) Thyroid disease Current Visit: Yes Status: Chronic Assessment and plan: Continue Synthroid 88mcg, pt currently euthyroid. (7) Elevated troponin Current Visit: Yes Status: Acute Assessment and plan: ED ECG showed st segment depression, likely demand ischemia (.04, .05, .05, .05) (8) CAD (coronary artery disease) Current Visit: Yes Status: Chronic Assessment and plan: Continue Cozaar, metoprolol, HCTZ, Crestor, coumadin. Now on ASA. Consider increase to Crestor if pt tolerates outpatient, pt denies trial of 20mg , no hx myalgias. Qualifiers: Coronary Disease-Associated Artery/Lesion type: [place] artery [place] vs. transplanted heart: [place] heart Associated angina: angina presence unspecified Qualified Code(s): I25.10 - Atherosclerotic heart disease of [place] coronary artery without angina pectoris (9) DVT prophylaxis Current Visit: Yes Status: Acute Assessment and plan: Coumadin w/ pharmacy to dose. No evidence of bleed on exam, labs. - Subjective Interval history: Ms. Person, 76F, past medical history of paroxysmal AFib diagnosed 3 years ago , anticoagulated on coumadin, presented with complaint of new onset palpitations and mild shortness of breath to ED yesterday. ECG showed afib with RVR, st depressions, likely demand ischemia, given 20mg IV Cardizem, on 10mg/hr now, no RVR, however, pt rate in 120s and irregular. Sees a Dr. Todd, cardiology, has her on Toprol 50mg. Pt reports no episodes like this before; has had Maze procedure 10/06/13 for AFib, at time considered resolved. During same surgery, aortic valve replaced due to aortic stenosis (Briones pericardial aortic valve). No known hx CHF, pt's BNP 498 on admission. Echo ordered. Today: pt is accompanied by family has felt asymptomatic since yesterday, no complaints, agrees to increase her metoprolol and will f/u with her rn home health. - Constitutional Vitals: Temp Pulse Resp BP Pulse Ox 98.4 F 68 16 122/67 94 01/03/17 15:09 01/03/17 15:20 01/03/17 15:09 01/03/17 15:09 01/03/17 15:09 General appearance: Present: cooperative, A&O X 3, morbidly obese, pleasant, no acute distress, answers questions appropriately Internal Medicine: Result - Labs CBC & Chem 7: 01/03/17 06:02 01/03/17 06:02 Labs: Short CBC 01/03/17 Range/Units 06:02 WBC 10.7 (4.3-11.1) K/mcL Hgb 12.9 (11.5-15.4) g/dL Hct 40.9 (35.3-44.9) % Plt Count 182 (140-400) K/mcL Neutrophils # 7.9 (1.6-8.9) K/mcL BMP 01/03/17 06:02 Sodium 141 Potassium 3.7 Chloride 106 Carbon Dioxide 26 BUN 20 Creatinine 0.84 Glucose 107 H Calcium 8.4 L Liver Function 01/03/17 Range/Units 06:02 Total Bilirubin 0.4 (0.2-1.2) mg/dL AST 11 (5-34) Units/L ALT 20 (0-55) Units/L Alkaline Phosphatase 65 (38-126) Units/L Albumin 2.8 L (3.5-5.0) g/dL - ABG Interpretation ABG results: PT/INR, D-dimer PT 29.0 Seconds (9.4-12.1) H 01/03/17 06:02 Consult Discharge Plan - Plan Referrals: Jojo Gonzalez MD [Primary Care Provider] - 01/09/17 1:30 pm <Julio Garcia - Last Filed: 01/03/17 17:47> Date of Encounter: 01/03/17 - Constitutional Vitals: Temp Pulse Resp BP Pulse Ox 98.4 F 68 16 122/67 94 01/03/17 15:09 01/03/17 15:20 01/03/17 15:09 01/03/17 15:09 01/03/17 15:09 Internal Medicine: Result - Labs CBC & Chem 7: 01/03/17 06:02 01/03/17 06:02 Labs: Short CBC 01/03/17 Range/Units 06:02 WBC 10.7 (4.3-11.1) K/mcL Hgb 12.9 (11.5-15.4) g/dL Hct 40.9 (35.3-44.9) % Plt Count 182 (140-400) K/mcL Neutrophils # 7.9 (1.6-8.9) K/mcL BMP 01/03/17 06:02 Sodium 141 Potassium 3.7 Chloride 106 Carbon Dioxide 26 BUN 20 Creatinine 0.84 Glucose 107 H Calcium 8.4 L Liver Function 01/03/17 Range/Units 06:02 Total Bilirubin 0.4 (0.2-1.2) mg/dL AST 11 (5-34) Units/L ALT 20 (0-55) Units/L Alkaline Phosphatase 65 (38-126) Units/L Albumin 2.8 L (3.5-5.0) g/dL - ABG Interpretation ABG results: PT/INR, D-dimer PT 29.0 Seconds (9.4-12.1) H 01/03/17 06:02 - Attending Attestation I conducted a face to face diagnostic evaluation of this patient and my medical decision-making was reviewed with the Resident Physician, Dr. Jordi Davidson. I agree with the documented findings, disposition and treatment plan as described except to the extent set forth below: On exam she has regular rate and rhythm without murmurs. Lungs are clear. Extremity exam reveals bilateral 1+ pitting edema Plan: Continue with metoprolol. If she remains and sinus we will discharge home. Continue anticoagulation with Coumadin. Start Lasix 20 mg daily at home and follow up with PCP and BMP in 1 week.
--- NOTE | 2017-01-03 15:50 | Electrocardiograph Report ---
[place] [id number] Test Date: 2017-01-03 Pat Name: Elaine Person Department: 110 Room: 2N13 Gender: F [employer]: LILI : 1940 Requested By: Jordi Davidson Order Number: [id number] Reading MD: Grayson Araujo MD Measurements Intervals [place] Rate: 63 P: 74 [place]: 210 QRS: -16 QRSD: 106 T: 43 QT: 442 QTc: 449 Interpretive Statements SINUS RHYTHM WITH FIRST DEGREE AV BLOCK Electronically Signed On 01-03-2017 15:49:18 EST by Grayson Araujo MD
[2017-01-03] MEDS: *HR* Warfarin 4 MG TABLET PO SCH (16:51)
[2017-01-04 04:43] LABS: INR 2.7; Prothrombin Time 29.2 Seconds (9.4-12.1)
[2017-01-04 04:44] LABS: Basophils % 0.4 %; Eosinophils # 0.3 K/mcL (0.0-0.6); Eosinophils % 3.6 %; Hemoglobin 12.4 g/dL (11.5-15.4); Immature Granulocytes % 0.3 % (0-4); Lymphocytes # 1.5 K/mcL (0.6-4.6); Lymphocytes % 15.8 %; Mean Corpuscular HGB Conc 31.8 g/dL (31.6-35.5); Mean Corpuscular Hemoglobin 29.4 pg (28.0-33.3); Mean Corpuscular Volume 92.4 fL (83.0-100.0); Mean Platelet Volume 11.7 fL (9.4-12.4); Monocytes # 0.8 K/mcL (0.0-1.3); Monocytes % 8.3 %; Neutrophils # 6.8 K/mcL (1.6-8.9); Platelet Count 174 K/mcL (140-400); Red Blood Count 4.22 M/mcL (3.82-4.97); Red Cell Distribution Width 15.5 % (11.5-14.5); Segmented Neutrophils % 71.6 %
[2017-01-04 04:49] LABS: Alanine Aminotransferase 16 Units/L (0-55); Albumin 2.7 g/dL (3.5-5.0); Albumin/Globulin Ratio 0.8 (1.1-2.2); Alkaline Phosphatase 66 Units/L (38-126); Aspartate Amino Transferase 12 Units/L (5-34); BUN/Creatinine Ratio 22 (6-26); Bilirubin,Total 0.5 mg/dL (0.2-1.2); Blood Urea Nitrogen 17 mg/dL (7-20); Calcium 8.5 mg/dL (8.6-10.8); Carbon Dioxide 30 mEq/L (19-29); Chloride 103 mEq/L (98-109); Globulin 3.2 g/dL (2.4-3.5); Glucose 104 mg/dL (70-99); Osmolality,Calculated 292 (280-300); Potassium 3.7 mEq/L (3.5-4.5); Sodium 140 mEq/L (136-145); Total Protein 5.9 g/dL (6.0-8.3); eGFR For African Americans > 60 (> 60); eGFR For Non-African Americans > 60 (> 60)
[2017-01-04 07:06] VITALS: BP 111/62
[2017-01-04] MEDS: Metoprolol XL (24 HR) Succ 25 MG TAB.ER.24H PO SCH (07:51)
[2017-01-04] MEDS: Aspirin Enteric Coated 81 MG Tablet PO SCH (07:52)
--- NOTE | 2017-01-04 08:36 | Discharge Summary ---
<Jordi Davidson - Last Filed: 01/04/17 09:31> Date of Encounter: 01/04/17 Time of Encounter: 08:36 - Discharge Diagnosis (1) Atrial fibrillation with RVR Priority: Primary Status: Acute (2) Acute exacerbation of CHF (congestive heart failure) Priority: Secondary Status: Acute Qualifiers: Congestive heart failure type: unspecified congestive heart failure type Qualified Code(s): I50.9 - Heart failure, unspecified (3) Acute diastolic (congestive) heart failure Priority: Secondary Status: Acute (4) HLD (hyperlipidemia) Priority: Secondary Status: Chronic Qualifiers: Hyperlipidemia type: pure hypercholesterolemia Qualified Code(s): E78.00 - Pure hypercholesterolemia, unspecified (5) HTN (hypertension) Priority: Secondary Status: Chronic Qualifiers: Hypertension type: essential hypertension Qualified Code(s): I10 - Essential (primary) hypertension (6) Dizziness Priority: Secondary Status: Acute (7) Thyroid disease Priority: Secondary Status: Chronic (8) Elevated troponin Priority: Secondary Status: Acute (9) CAD (coronary artery disease) Priority: Secondary Status: Chronic Qualifiers: Coronary Disease-Associated Artery/Lesion type: [place] artery [place] vs. transplanted heart: [place] heart Associated angina: angina presence unspecified Qualified Code(s): I25.10 - Atherosclerotic heart disease of [place] coronary artery without angina pectoris (10) DVT prophylaxis Priority: Secondary Status: Acute - Discharge Medications Prescriptions: Furosemide [Lasix] 20 mg PO DAILY #30 tablet Metoprolol XL (24 HR) Succ [Toprol Xl] 75 mg PO DAILY #90 tab.er.24h Home Medications: Losartan [Cozaar] 50 mg PO DAILY 08/15/16 [History] Metoprolol Succinate 50 mg PO DAILY 08/15/16 [History] Rosuvastatin Calcium [Crestor] 10 mg PO DAILY 08/15/16 [History] Warfarin [Coumadin] 4 mg PO 1800 08/15/16 [History] Cholecalciferol (D-3) [Vitamin D] 2,000 unit PO DAILY 01/01/17 [History] Levothyroxine Sodium [Levo-T] 100 mcg PO DAILY 01/01/17 [History] Mv,Ca,Fe,Min/FA/Guarana/Caff [One Daily Tablet] 1 tab PO DAILY 01/01/17 [History ] hydroCHLOROthiazide [Hydrochlorothiazide] 25 mg PO DAILY 01/01/17 [History] Furosemide [Lasix] 20 mg PO DAILY #30 tablet 01/04/17 [Rx] Metoprolol XL (24 HR) Succ [Toprol Xl] 75 mg PO DAILY #90 tab.er.24h 01/04/17 [ Rx] Allergies/Adverse Reactions: 3 Allergy/AdvReac Type Severity Reaction Status Date / Time Hfhppbd-Ovy-Pgp Reductase AdvReac Weakness Verified 01/01/17 20:43 Inhibitor [Statins] Procedures/tests Complete & Pending: Procedures Performed prior 72 hours Category Date Time Status ECG 12 lead ECG [ECG] Stat Y 01/03/17 10:49 Completed EV carotid duplex imaging BI Routine Y 01/02/17 07:00 Completed EV echocardiogram Routine Y 01/02/17 07:00 Completed Date of admission: 01/01/17 17:31 Primary care physician: Jojo Gonzalez, Consults: 01/01/17 16:55 Consult to Boiler Erector [CONS] Routine Reason for SW Consult: Discharge planning. Please assess patient for any possible home needs. 01/01/17 17:34 Consult to Occupational Therapy [CONS] Routine Comment: Evaluate, develop and implement POC Reason for Consult: Patient is experiencing weakness in bilateral LEs w/ ambulation. Please assess for strength, stability, safety, ambulation, and possible assistive needs for post-discharge planning. Consult to Physical Therapy [CONS] Routine Comment: Evaluate, develop and implement POC Reason for Consult: Patient is experiencing weakness in bilateral LEs w/ ambulation. Please assess for strength, stability, safety, ambulation, and possible assistive needs for post-discharge planning. 01/01/17 17:56 Consult to Wound Care [CONS] Routine Reason for Consult: Pt. has wound on the LLE that appears to be healing but pt. states is a deep wound that recurs if she is not careful. Call Completed: No 01/02/17 10:44 Consult to Cardiology [CONS] Routine Comment: Consulting Provider: Cardiology Eliza Reason for Consult: Afib-RVR, possible CHF Time Notified: 10:45 Call Completed: Yes 01/03/17 08:23 Consult to Invasive Line Access Team [CONS] Routine Reason for Consult: Limited vasc access Line Type: EPIV - Patient Status Disposition: Home, Self-Care Condition: Good Functional capacity at discharge: independent ambulation Overall status at discharge: patient is progressing back to baseline - Discharge Instructions Follow Up With: Jojo Gonzalez MD [Primary Care Provider] - 01/09/17 1:30 pm Abraham Baires MD [Partnered Physician] - Additional Instructions: Please f/u with Kosher Butcher within 2 weeks. Please f/u with PCP within 2 weeks. - Diet and Activity Activity: increase activity as tolerated Diet: low salt diet Hospital course: Ms. Person is a 76 year old female, with past medical history of hypertension, coronary artery disease with open heart surgery for aortic valve replacement, Maze procedure, and known paroxysmal atrial fibrillation, diagnosed 3 years ago , anticoagulated on Coumadin, who presented to ED with shortness of breath and palpitations. ECG demonstrated atrial fibrillation with rapid ventricular response. Patient was given Cardizem 20mg IVP in ED, transitioned to drip, and admitted to cardiac telemetry. Drip was titrated up to 12.5mg/hr, at which point patient converted to NSR in the mid-60's. Significant BNP elevation to > 400 was also found on admission, echocardiogram was ordered, showing preserved LVEF and indeterminate diastolic dysfunction. Cardiology recommended an increase to her metoprolol from 50mg daily to 75mg daily. She was initiated on Lasix 20mg daily. Patient is to be discharged home and to follow-up with her Cardiology DrJosé Miguel Baires within the next 2 weeks. - Time Spent with Patient Total time spent providing and/or coordinating discharge services: - Constitutional Vitals: Temp Pulse Resp BP Pulse Ox 98.2 F 68 18 111/62 93 01/04/17 07:03 01/04/17 07:56 01/04/17 07:03 01/04/17 07:03 01/04/17 07:03 General appearance: Present: cooperative, A&O X 3, morbidly obese, pleasant, no acute distress, answers questions appropriately - Head Head exam: Present: atraumatic - Neck Neck exam general surgery: Present: full ROM - Respiratory Respiratory exam: Present: CTAB. Absent: rhonchi - Cardiovascular Cardiovascular exam: Present: RRR, +S1, +S2 - GI/Abdominal GI/Abdominal exam: Present: no peritoneal signs. Absent: tenderness - Extremities Exam Extremities exam: Present: normal inspection. Absent: calf tenderness Additional comments: Well healing LLE medial malleolar ulcer. <Ramon Garcia - Last Filed: 01/04/17 18:26> Date of Encounter: 01/04/17 - Discharge Diagnosis (1) Atrial fibrillation Priority: Primary Status: Acute Qualifiers: Atrial fibrillation type: paroxysmal Qualified Code(s): I48.0 - Paroxysmal atrial fibrillation (2) Acute diastolic (congestive) heart failure Status: Acute (3) CAD (coronary artery disease) Status: Chronic Qualifiers: Coronary Disease-Associated Artery/Lesion type: [place] artery [place] vs. transplanted heart: [place] heart Associated angina: without angina Qualified Code(s): I25.10 - Atherosclerotic heart disease of [place] coronary artery without angina pectoris (4) HLD (hyperlipidemia) Status: Chronic Qualifiers: Hyperlipidemia type: mixed hyperlipidemia Qualified Code(s): E78.2 - Mixed hyperlipidemia (5) HTN (hypertension) Status: Chronic Qualifiers: Hypertension type: essential hypertension Qualified Code(s): I10 - Essential (primary) hypertension (6) Thyroid disease Status: Chronic Procedures/tests Complete & Pending: Procedures Performed prior 72 hours Category Date Time Status ECG 12 lead ECG [ECG] Stat Y 01/03/17 10:49 Completed EV carotid duplex imaging BI Routine Y 01/02/17 07:00 Completed EV echocardiogram Routine Y 01/02/17 07:00 Completed Date of admission: 01/01/17 17:31 Primary care physician: Jojo Gonzalez, Consults: 01/01/17 16:55 Consult to Boiler Erector [CONS] Routine Reason for SW Consult: Discharge planning. Please assess patient for any possible home needs. 01/01/17 17:34 Consult to Occupational Therapy [CONS] Routine Comment: Evaluate, develop and implement POC Reason for Consult: Patient is experiencing weakness in bilateral LEs w/ ambulation. Please assess for strength, stability, safety, ambulation, and possible assistive needs for post-discharge planning. Consult to Physical Therapy [CONS] Routine Comment: Evaluate, develop and implement POC Reason for Consult: Patient is experiencing weakness in bilateral LEs w/ ambulation. Please assess for strength, stability, safety, ambulation, and possible assistive needs for post-discharge planning. 01/01/17 17:56 Consult to Wound Care [CONS] Routine Reason for Consult: Pt. has wound on the LLE that appears to be healing but pt. states is a deep wound that recurs if she is not careful. Call Completed: No 01/02/17 10:44 Consult to Cardiology [CONS] Routine Comment: Consulting Provider: Cardiology Eliza Reason for Consult: Afib-RVR, possible CHF Time Notified: 10:45 Call Completed: Yes 01/03/17 08:23 Consult to Invasive Line Access Team [CONS] Routine Reason for Consult: Limited vasc access Line [facility] Hospital course: Ms. Person is a 76 year old female - Time Spent with Patient Total time spent providing and/or coordinating discharge services: 37min - Constitutional Vitals: Temp Pulse Resp BP Pulse Ox 98.2 F 68 18 111/62 93 01/04/17 07:03 01/04/17 07:56 01/04/17 07:03 01/04/17 07:03 01/04/17 07:03 - Attending Attestation I examined this patient and my medical decision-making was reviewed with the Resident Physician on 01/04/17. I agree with the documented findings, disposition and treatment plan as described except to the extent set forth below. Ms Person has been admitted for rapid a fib. She is now in sinus rhythm. She is afebrile with stable vitals and ready for discharge home. Exam Alert. Comfortable Heart reg No wheeze Mucus membranes moist Plan D/C today
[2017-01-04] MEDS ORDERED: Furosemide 40 MG TABLET PO SCH (09:00)
--- NOTE | 2017-01-04 10:03 | Physician Discharge Referral ---
Home Health/Hosp Referral Info Transfer to: Home Health Attending Provider: Dr. Ramon Garcia Provider in Charge Post Discharge: PCP - Diagnosis (1) Atrial fibrillation with RVR Status: Acute (2) Acute exacerbation of CHF (congestive heart failure) Status: Acute (3) Acute diastolic (congestive) heart failure Status: Acute (4) HLD (hyperlipidemia) Status: Chronic (5) HTN (hypertension) Status: Chronic (6) Dizziness Status: Acute (7) Thyroid disease Status: Chronic (8) Elevated troponin Status: Acute (9) CAD (coronary artery disease) Status: Chronic (10) DVT prophylaxis Status: Acute - Respiratory Orders None Smoking Cessation: Smoking cessation has been advised. For more information, call the [place] Tobacco Quit Line at 7-293-OULZ-NOW. - Services Needed Following services are medically necessary services: Nursing, Physical Therapy, Occupational Therapy - Transfer Medications Prescriptions: Furosemide [Lasix] 20 mg PO DAILY #30 tablet Metoprolol XL (24 HR) Succ [Toprol Xl] 75 mg PO DAILY #90 tab.er.24h Home Medications: Losartan [Cozaar] 50 mg PO DAILY 08/15/16 [History] Metoprolol Succinate 50 mg PO DAILY 08/15/16 [History] Rosuvastatin Calcium [Crestor] 10 mg PO DAILY 08/15/16 [History] Warfarin [Coumadin] 4 mg PO 1800 08/15/16 [History] Cholecalciferol (D-3) [Vitamin D] 2,000 unit PO DAILY 01/01/17 [History] Levothyroxine Sodium [Levo-T] 100 mcg PO DAILY 01/01/17 [History] Mv,Ca,Fe,Min/FA/Guarana/Caff [One Daily Tablet] 1 tab PO DAILY 01/01/17 [History ] hydroCHLOROthiazide [Hydrochlorothiazide] 25 mg PO DAILY 01/01/17 [History] Furosemide [Lasix] 20 mg PO DAILY #30 tablet 01/04/17 [Rx] Metoprolol XL (24 HR) Succ [Toprol Xl] 75 mg PO DAILY #90 tab.er.24h 01/04/17 [ Rx] Allergies/Adverse Reactions: 3 Allergy/AdvReac Type Severity Reaction Status Date / Time Nuvfkfz-Beu-Muc Reductase AdvReac Weakness Verified 01/01/17 20:43 Inhibitor [Statins] Certification: Further, I certify that my clinical findings support that this patient is homebound (i.e. absences from home require considerable and taxing effort and are for medical reasons or judaism services or infrequently or short duration when for other reasons) because: Homebound Reason: Patient requires assistance of a person or device to safely leave home Attestation: My signature below is to certify that this patient is under my care and that I, or nurse practitioner, or a physician's education administrative assistant working with me, has a face-to -face encounter with this patient.
== END 2017-01-04 11:28 | disposition home or self-care (01) | DRG 308 ==
LOC: 2NNU → SUATTDRO 17:31
PROVIDERS: ADMIT Internal Medicine; ATTEND Internal Medicine

== ENCOUNTER 2018-02-26 07:57 | Observation (INO) ==
[2018-02-26] MEDS ORDERED: Naloxone 0.4 MG/ML INJ IVP PRN (10:44)
[2018-02-26 11:31] LABS: Basophils # 0.1 K/mcL (0.0-0.2); Basophils % 0.6 %; Eosinophils # 0.2 K/mcL (0.0-0.6); Eosinophils % 2.1 %; Hematocrit 45.2 % (35.3-44.9); Hemoglobin 14.3 g/dL (11.5-15.4); Immature Granulocytes % 0.6 % (0-4); Lymphocytes # 1.3 K/mcL (0.6-4.6); Lymphocytes % 15.2 %; Mean Corpuscular HGB Conc 31.6 g/dL (31.6-35.5); Mean Corpuscular Volume 88.5 fL (83.0-100.0); Mean Platelet Volume 11.7 fL (9.4-12.4); Monocytes # 0.7 K/mcL (0.0-1.3); Monocytes % 8.2 %; Neutrophils # 6.4 K/mcL (1.6-8.9); Platelet Count 192 K/mcL (140-400); Red Blood Count 5.11 M/mcL (3.82-4.97); Segmented Neutrophils % 73.3 %
[2018-02-26 11:42] LABS: BUN/Creatinine Ratio 24 (6-26); Blood Urea Nitrogen 22 mg/dL (8-23); Carbon Dioxide 26 mEq/L (23-29); Chloride 108 mEq/L (98-107); Glucose 123 mg/dL (70-105); Osmolality,Calculated 291 (280-300); Potassium 3.2 mEq/L (3.5-5.1); Sodium 138 mEq/L (136-145); eGFR For Non-African Americans > 60 (> 60)
[2018-02-26 11:50] LABS: INR 4.5; Prothrombin Time 51.3 Seconds (9.4-12.1)
--- NOTE | 2018-02-26 13:17 | Electrophysiology H & P ---
<KoreyChichi J - Last Filed: 02/26/18 13:45> Date of Encounter: 02/26/18 Time of Encounter: 11:00 Assessment and Plan (1) Atrial fibrillation Current Visit: Yes Status: Acute Per EP: -Known history of PAF. -Plan for sotalol initiation. -ECG baseline 02/26/18 with a.fib RVR, HR 140. QT 329/QTc 410ms. -Renal function normal. K 3.2 -On cardizem and metoprolol at home. -On coumadin for anticoagulation. INRs monitored by PCP. -Will start sotalol 80mg BID. -Continue cardizem and BB. -Continuos telemetry. -Will replace K. -ECG daily. -Discussed and reviewed with Dr.John Kerr. -The assessment and plan as outlined above was discussed with the patient and/or family members who expressed understanding and agreement. All questions were answered. Qualifiers: Atrial fibrillation type: paroxysmal Qualified Code(s): I48.0 - Paroxysmal atrial fibrillation (2) Encounter for monitoring anti-arrhythmic therapy Current Visit: Yes Status: Acute Per EP: -PLan for sotalol initiation. -See PAF. The assessment and plan as outlined above was discussed with the patient and/or family members who expressed understanding and agreement. All questions were answered. 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 INR supratherapeutic. -INR 02/25/18 4.6, 02/18 3.7, 12/26 3.1, 12/12 3.4. -Will order coumadin pharmacy to dose. The assessment and plan as outlined above was discussed with the patient and/or family members who expressed understanding and agreement. All questions were answered. History of Present Illness Chief complaint: Atrial fibrillation HPI: Ms. Person is a 77 year old female with a relevant past medical history of HTN, hypothyroidism, CAD, DVT, aortic stenosis s/p AV replacement with bioprosthetic AV, IVC filter, diastolic CHF who was directly admitted to [facility] for sotalol initiation. Patient has known history of a.fib. Currently denies palpitations or fluttering. Reports has noticed elevated HRs at home. Denies complaints today. Reports held last nights dose of coumadin due to INR "being too thin." Past Med Surg Social Fam HX - Past Medical History Attestation: Yes The following information was validated with the patient. Source: patient, old records reviewed Medical history: atrial fibrillation, CHF, coronary artery disease, DVT, hyperlipidemia, hypertension, pulmonary embolus, thyroid disease, valvular heart disease Psychiatric history: no psych history - Past Surgical History Surgical History: coronary bypass (CABG) Additional surgical history: colostomy with reversal, vein stripping, cataract - Social History Smoking Status: Former smoker Smokeless Tobacco Status: No Alcohol use: none Drug use: none - Family History Brother Family Member Ethnicity: Non- Living Status: Hx Family Cancer: Yes (Lung) Father Family Member Ethnicity: Non- Living Status: Hx Family Respiratory Disorders: Yes (Pneumonia) Mother Family Member Ethnicity: Non- Living Status: Hx Family Respiratory Disorders: Yes (Pneumonia) Sister Family Member Ethnicity: Non- Living Status: Medications and Allergies RX: Warfarin [Coumadin] 4 mg PO AD 08/15/16 [History] RX: Levothyroxine Sodium [Levo-T] 100 mcg PO DAILY 01/01/17 [History] RX: Mv,Ca,Fe,Min/FA/Guarana/Caff [One Daily Tablet] 1 tab PO DAILY 01/01/17 [History] RX: hydroCHLOROthiazide [Hydrochlorothiazide] 25 mg PO DAILY 01/01/17 [History] Furosemide [Lasix] 20 mg PO DAILY #30 tablet 01/04/17 [Rx] Cinnamon Bark [Cinnamon] 500 mg PO DAILY 02/26/18 [History] Ergocalciferol (VITAMIN D2) [Vitamin D2] 2,000 unit PO DAILY 02/26/18 [History] Metoprolol Succinate [Toprol Xl] 100 mg PO DAILY 02/26/18 [History] Allergy/AdvReac Type Severity Reaction Status Date / Time Oqlgkiw-Mtz-Uoz Reductase AdvReac Weakness Verified 02/26/18 17:02 Inhibitor [Statins] All Systems Review: The remainder of the systems were reviewed and are negative - Cardiovascular Cardiovascular: as per HPI, rapid heart rate Physical Examination Vital Signs, Last 4 Hours Temp Pulse Resp BP Pulse Ox 02/26/18 10:54 97.9 F 141 18 112/82 93 General: Conversant, No Apparent Distress HEENT: Atraumatic, Normocephaly, Mucus Membranes Moist Neck: No JVD, Normal carotid pulses Cardiac: Normal S1 and S2, No Murmur, Other (Irregularly irregular) Lungs: Normal Breath Sounds, No Wheeze, Rales, Rhonchi Neuro: Alert and responsive, No focal deficits noted Abdomen: Soft, Non-Tender Skin: No rashes noted on visualized skin Musculoskeletal: No Chest Wall Tenderness Extremities: No Clubbing, No Cyanosis, No Edema, Normal Pulses Results 02/26/18 11:10 02/26/18 11:10 Lab Results Laboratory Tests 02/26/18 02/26/18 02/26/18 11:10 11:10 11:10 Hgb 14.3 INR 4.5 H* Potassium 3.2 L Creatinine 0.90 - Imaging and Cardiology Echo: report reviewed - EKG Interpretation EKG results cardiology: personally reviewed (ECG with jarett RVR, HR 140. QT 329/ QTc 410ms.) - VTE Reasons for not Prescribing Prophylaxis: Not indicated-Anticoagulated or INR therapeutic <Julian Kerr - Last Filed: 02/28/18 09:01> Date of Encounter: 02/28/18 - Attending Attestation I have personally performed a face to face evaluation on this patient. I have reviewed and agree with the care plan. History and Exam by me shows: Admission for sotalol initiation. History of Present Illness HPI: Ms. Person is a 77 year old female All Systems Review: The remainder of the systems were reviewed and are negative Physical Examination Vital Signs, Last 4 Hours Temp Pulse Resp BP Pulse Ox 02/28/18 07:15 97.7 F 113 16 118/82 93 Results 02/26/18 11:10 02/27/18 11:25 Lab Results 02/27/18 02/27/18 02/28/18 07:40 11:25 05:29 INR 3.8 3.1 Sodium 138 Potassium 3.4 L Chloride 105 Carbon Dioxide 27 BUN 20 Creatinine 0.87 Glucose 114 H Calcium 8.6
[2018-02-26] MEDS: hydroCHLOROthiazide 25 MG TABLET PO SCH (17:02)
[2018-02-26] MEDS: Furosemide 20 MG TABLET PO SCH (17:02)
[2018-02-26] MEDS: Diltiazem CD (24hr) 180 MG CAPSULE PO SCH (17:02)
[2018-02-26] MEDS: Metoprolol XL (24 HR) Succ 50 MG TAB.ER.24H PO SCH (17:02)
[2018-02-26] MEDS ORDERED: Warfarin perPT PO PRN (18:00)
--- NOTE | 2018-02-27 09:15 | Electrophysiology ProgressNote ---
Date of Encounter: 02/27/18 Time of Encounter: 09:13 Assessment and Plan (1) Atrial fibrillation Current Visit: Yes Status: Acute Per EP: -Known history of PAF. -ECG baseline 02/26/18 with a.fib RVR, HR 140. QT 329/QTc 410ms. -ECG 02/27/18 s/p 2 total doses of sotalol with a.fib, HR 88. QT 395/QTc 440ms. -On cardizem and metoprolol at home. -On coumadin for anticoagulation. INRs monitored by PCP. -Continuous telemetry. -Continue sotalol 80mg BID. -Continue cardizem and BB. -Labs pending this am. -ECG daily. -Discussed and reviewed with Dr.John Kerr. Qualifiers: Atrial fibrillation type: paroxysmal Qualified Code(s): I48.0 - Paroxysmal atrial fibrillation (2) Encounter for monitoring anti-arrhythmic therapy Current Visit: Yes Status: Acute Per EP: -PLan for sotalol initiation. -See PAF. 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 INR supratherapeutic. -INR 02/25/18 4.6, 02/18 3.7, 12/26 3.1, 12/12 3.4. -Labs pending this am. -Will order coumadin pharmacy to dose. Discussion w patient/family: The assessment and plan as outlined above was discussed with the patient who expressed understanding and agreement. All questions were answered. Thank you for involving us in the care of your patient. Please call with any questions. Discussed and reviewed with Dr.John Kerr. Subjective Principal diagnosis: PAF Interval history: Patient states she did not sleep well last night. Otherwise, states she feels well. Objective Vital Signs, Last 4 Hours Temp Pulse Resp BP Pulse Ox 02/27/18 08:00 98.5 F 119 18 111/80 87 02/27/18 05:19 97.9 F 109 18 110/75 92 General: Conversant, No Apparent Distress HEENT: Atraumatic, Normocephaly, Mucus Membranes Moist Neck: No JVD, Normal carotid pulses Cardiac: Normal S1 and S2, No Murmur, Other (Irregularly irregular) Lungs: Normal Breath Sounds, No Wheeze, Rales, Rhonchi Neuro: Alert and responsive, No focal deficits noted Abdomen: Soft, Non-Tender Skin: No rashes noted on visualized skin Musculoskeletal: No Chest Wall Tenderness Extremities: No Clubbing, No Cyanosis, No Edema, Normal Pulses Results 02/26/18 11:10 02/26/18 11:10 Lab Results 02/26/18 02/26/18 02/26/18 11:10 11:10 11:10 WBC 8.7 Hgb 14.3 Hct 45.2 H Plt Count 192 INR 4.5 H* Sodium 138 Potassium 3.2 L Chloride 108 H Carbon Dioxide 26 BUN 22 Creatinine 0.90 Glucose 123 H Calcium 9.0 - Imaging and Cardiology Echo: report reviewed - EKG Interpretation EKG results cardiology: personally reviewed (ECG with a.fib, HR 88. QT 395/QTc 440ms.), other (Telemetry reviewed with average HR previous 12 hours noted to be 109, a.fib. PVCs noted.) - VTE Reasons for not Prescribing Prophylaxis: Not indicated-Anticoagulated or INR therapeutic Consult Discharge Plan - Plan Referrals: NONE,PCP [Primary Care Provider] -
[2018-02-27] MEDS: Diltiazem CD (24hr) 180 MG CAPSULE PO SCH (09:44)
[2018-02-27] MEDS: Metoprolol XL (24 HR) Succ 50 MG TAB.ER.24H PO SCH (09:44)
[2018-02-27] MEDS: Furosemide 20 MG TABLET PO SCH (09:44)
[2018-02-27] MEDS: Multivit/Ca/Min/Fe/FA 1 TAB TABLET PO SCH (09:44)
[2018-02-27] MEDS: hydroCHLOROthiazide 25 MG TABLET PO SCH (09:44)
[2018-02-27] MEDS: Cholecalciferol (D-3) 1,000 UNIT TABLET PO SCH (09:44)
[2018-02-27 09:49] LABS: INR 3.8; Prothrombin Time 42.4 Seconds (9.4-12.1)
[2018-02-27 12:07] LABS: BUN/Creatinine Ratio 23 (6-26); Blood Urea Nitrogen 20 mg/dL (8-23); Calcium 8.6 mg/dL (8.6-10.3); Carbon Dioxide 27 mEq/L (23-29); Chloride 105 mEq/L (98-107); Glucose 114 mg/dL (70-105); Osmolality,Calculated 289 (280-300); Potassium 3.4 mEq/L (3.5-5.1); Sodium 138 mEq/L (136-145); eGFR For Non-African Americans > 60 (> 60)
[2018-02-28 05:58] LABS: INR 3.1; Prothrombin Time 34.7 Seconds (9.4-12.1)
[2018-02-28] MEDS: Metoprolol XL (24 HR) Succ 50 MG TAB.ER.24H PO SCH (09:38)
[2018-02-28] MEDS: Furosemide 20 MG TABLET PO SCH (09:38)
[2018-02-28] MEDS: Cholecalciferol (D-3) 1,000 UNIT TABLET PO SCH (09:38)
[2018-02-28] MEDS: Multivit/Ca/Min/Fe/FA 1 TAB TABLET PO SCH (09:38)
[2018-02-28] MEDS: hydroCHLOROthiazide 25 MG TABLET PO SCH (09:39)
[2018-02-28] MEDS: Diltiazem CD (24hr) 180 MG CAPSULE PO SCH (09:39)
[2018-02-28] MEDS ORDERED: Acetaminophen 325 MG TABLET PO PRN (10:16)
--- NOTE | 2018-02-28 11:25 | Electrophysiology ProgressNote ---
Date of Encounter: 02/28/18 Time of Encounter: 10:30 Assessment and Plan (1) Atrial fibrillation Current Visit: Yes Status: Acute Per EP: -Known history of PAF. -ECG baseline 02/26/18 with a.fib RVR, HR 140. QT 329/QTc 410ms. -ECG 02/27/18 s/p 2 total doses of sotalol with a.fib, HR 88. QT 395/QTc 440ms. -ECG 03/10/18 s/p 4 total doses of sotalol with a.fib, HR 100. QT 364/QTc 421ms. -On cardizem and metoprolol at home. -On coumadin for anticoagulation. INRs monitored by PCP. -Continuous telemetry. -Discussed potential DCCV today, however patient does not wish to proceed with DCCV today. -Continue sotalol 80mg BID. -Continue cardizem and BB. -ECG daily. -If remains in a.fib overnight, will plan for DCCV in am. Risks versus benefits of DCCV explained to patient, who states understanding and agreeable to proceed. -Discussed and reviewed with Dr.John Kerr. Qualifiers: Atrial fibrillation type: paroxysmal Qualified Code(s): I48.0 - Paroxysmal atrial fibrillation (2) Encounter for monitoring anti-arrhythmic therapy Current Visit: Yes Status: Acute Per EP: -PLan for sotalol initiation. -See PAF. (3) skilled nursing current use of anticoagulant therapy Current Visit: Yes Status: Acute Per EP: -On coumadin. INR supratherapeutic. -INR 02/25/18 4.6, 02/18 3.7, 12/26 3.1, 12/12 3.4. -02/27/18 INR 3.8. -02/28/18 INR 3.1 -Goal INR 2.0-3.0. -Will order coumadin pharmacy to dose. Discussion w patient/family: The assessment and plan as outlined above was discussed with the patient who expressed understanding and agreement. All questions were answered. Thank you for involving us in the care of your patient. Please call with any questions. Discussed and reviewed with Dr.John Kerr. Subjective Principal diagnosis: PAF Interval history: Patient reports some mild back pain today. States has chronic back pain and uses tylenol for relief. Objective Vital Signs Temperature 97.9 F 02/26/18 10:54 Pulse Rate 141 02/26/18 10:54 Respiratory Rate 18 02/26/18 10:54 Blood Pressure 112/82 02/26/18 10:54 O2 Sat by Pulse Oximetry 93 02/26/18 10:54 Temperature 97.7 F 02/28/18 07:15 Pulse Rate 113 02/28/18 07:15 Respiratory Rate 16 02/28/18 07:15 Blood Pressure 118/82 02/28/18 07:15 O2 Sat by Pulse Oximetry 93 02/28/18 07:15 General: Conversant, No Apparent Distress HEENT: Atraumatic, Normocephaly, Mucus Membranes Moist Neck: No JVD, Normal carotid pulses Cardiac: Normal S1 and S2, No Murmur, Other (Irregularly irregular) Lungs: Normal Breath Sounds, No Wheeze, Rales, Rhonchi Neuro: Alert and responsive, No focal deficits noted Abdomen: Soft, Non-Tender Skin: No rashes noted on visualized skin Musculoskeletal: No Chest Wall Tenderness Extremities: No Clubbing, No Cyanosis, No Edema, Normal Pulses Results 02/26/18 11:10 02/27/18 11:25 Lab Results Active Medications Acetaminophen (Tylenol) 650 mg PO Q6HR PRN PRN Reason: Pain Stop: 08/30/18 10:17 Last Admin: 02/28/18 10:33 Dose: 650 mg Diltiazem HCl (Cardizem Cd) 180 mg PO DAILY [facility] Stop: 08/28/18 15:31 Last Admin: 02/28/18 09:39 Dose: 180 mg Furosemide (Lasix) 20 mg PO DAILY [facility] Stop: 08/28/18 15:31 Last Admin: 02/28/18 09:38 Dose: 20 mg Hydrochlorothiazide (Hydrochlorothiazide) 25 mg PO DAILY [facility]; Protocol Stop: 08/28/18 15:31 Last Admin: 02/28/18 09:39 Dose: 25 mg Levothyroxine Sodium (Synthroid) 100 mcg PO DAILY@0630 [facility] Stop: 08/29/18 06:31 Last Admin: 02/28/18 05:30 Dose: 100 mcg Metoprolol Succinate (Toprol Xl) 100 mg PO DAILY [facility] Stop: 08/28/18 15:31 Last Admin: 02/28/18 09:38 Dose: 100 mg Multivitamins/Calcium (Thera M Plus) 1 tab PO DAILY [facility] Stop: 08/29/18 09:01 Last Admin: 02/28/18 09:38 Dose: 1 tab Naloxone HCl (Narcan) 0.4 mg IVP Q2MIN PRN PRN Reason: SEE COMMENTS Stop: 08/28/18 10:45 Potassium Chloride (Potassium Chloride) 40 meq PO BID [facility] Stop: 08/28/18 21:01 Last Admin: 02/28/18 09:38 Dose: 40 meq Sotalol HCl (Betapace) 80 mg PO Q12HR [facility] Stop: 08/28/18 18:01 Last Admin: 02/28/18 05:30 Dose: 80 mg Vitamin D (Vitamin D) 1,000 unit PO DAILY [facility] Stop: 08/29/18 09:01 Last Admin: 02/28/18 09:38 Dose: 1,000 unit Warfarin Sodium (Coumadin Perpt) 1 each PO DAILY@1800 PRN PRN Reason: SEE COMMENTS Stop: 08/28/18 18:01 Warfarin Sodium (Coumadin) 4 mg PO ONCE ONE Stop: 02/28/18 18:01 Laboratory Tests 02/27/18 02/28/18 11:25 05:29 INR 3.1 Potassium 3.4 L Creatinine 0.87 - Imaging and Cardiology Echo: report reviewed - EKG Interpretation EKG results cardiology: personally reviewed (ECG today with a.fib, HR 100. QT 364/ QTc 421ms.), other (Telemetry reviewed with average HR previous 12 hours noted to be 101, a.fib. PVCs noted.) - VTE Reasons for not Prescribing Prophylaxis: Not indicated-Anticoagulated or INR therapeutic Consult Discharge Plan - Plan Referrals: NONE,PCP [Primary Care Provider] -
--- NOTE | 2018-02-28 17:25 | Electrocardiograph Report ---
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
[2018-02-28] MEDS ORDERED: *HR* Warfarin 4 MG TABLET PO ONE (18:00)
--- NOTE | 2018-02-28 21:35 | Electrocardiograph Report ---
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
[2018-03-01 06:09] LABS: INR 2.3
[2018-03-01 06:15] LABS: BUN/Creatinine Ratio 20 (6-26); Blood Urea Nitrogen 17 mg/dL (8-23); Calcium 9.2 mg/dL (8.6-10.3); Carbon Dioxide 32 mEq/L (23-29); Chloride 105 mEq/L (98-107); Glucose 106 mg/dL (70-105); Osmolality,Calculated 296 (280-300); Potassium 4.7 mEq/L (3.5-5.1); Sodium 142 mEq/L (136-145); eGFR For Non-African Americans > 60 (> 60)
[2018-03-01] MEDS: hydroCHLOROthiazide 25 MG TABLET PO SCH (07:50)
[2018-03-01] MEDS: Multivit/Ca/Min/Fe/FA 1 TAB TABLET PO SCH (07:50)
[2018-03-01] MEDS: Diltiazem CD (24hr) 180 MG CAPSULE PO SCH (07:51)
[2018-03-01] MEDS: Furosemide 20 MG TABLET PO SCH (07:51)
[2018-03-01] MEDS: Cholecalciferol (D-3) 1,000 UNIT TABLET PO SCH (07:51)
[2018-03-01] MEDS: Metoprolol XL (24 HR) Succ 50 MG TAB.ER.24H PO SCH (07:51)
--- NOTE | 2018-03-01 10:21 | Event Note ---
Date of Encounter: 03/01/18 Time of Encounter: 09:00 - Cardiology Event Note Patient s/p 6 total doses of sotalol, remains a.fib. QT/QTc stable. Plan for DCCV today. Risks versus benefits of DCCV explained to patient, who states understanding and agreeable to proceed. INRs have been therapeutic for >30 days. Further recs pending DCCV
[2018-03-01] MEDS ORDERED: *HR* FentaNYL (PF) 100 MCG/2 ML VIAL IVP PRN (10:44)
[2018-03-01] MEDS ORDERED: 0.9 % Sodium Chloride 500 ML IVC ONE (10:45)
[2018-03-01] MEDS: *HR* Midazolam HCl 5 MG/5 ML VIAL IVP PRN ×2 (11:34→11:37)
[2018-03-01 13:02] VITALS: BP 102/60
--- NOTE | 2018-03-01 13:59 | Discharge Summary ---
- NOTES TO OUTPATIENT PROVIDER Notes to Outpatient Provider: Admitted for sotalol initiation Orders not resulted at time of discharge: Pending orders 03/01/18 06:00 ECG 12 lead ECG [ECG] AM 0600 03/02/18 04:00 INR/PT [Prothrombin Time INR] [COAG] AM 0400 03/03/18 04:00 INR/PT [Prothrombin Time INR] [COAG] AM 0400 Date of Encounter: 03/01/18 Time of Encounter: 13:55 - Discharge Diagnosis (1) Atrial fibrillation Priority: Primary Status: Acute Comments: Known PAF Qualifiers: Atrial fibrillation type: paroxysmal Qualified Code(s): I48.0 - Paroxysmal atrial fibrillation (2) Encounter for monitoring anti-arrhythmic therapy Priority: Secondary Status: Acute Comments: Admitted for sotalol initiation (3) penitentiary current use of anticoagulant therapy Priority: Secondary Status: Chronic Comments: On coumadin, INR followed by PCP. - Hospital Course Hospital course: Ms. Person is a 77 year old female who was directly admitted to [facility] for sotalol initiation. Patient is s/p 6 total doses of sotalol. QT/QTc stable, ECGs reviewed with Dr.John Kerr. Patient is s/p DCCV this am, currently SB, HR 50s. Discussed with , will continue toprol 100mg, cardizem CD 180mg, and sotalol 80mg Q12 hours. ERX sent to patient's pharmacy. Post sedation education reviewed with patient. Patient is on coumadin for anticoagulation. INR was supratherapuetic on admission. INR 2.3 today. Discussed with Carlos Manuel, pharmacist, who recommends discharging patient on 2mg coumadin M, W, F and 4mg on Sun, Tues, Thur, Sat. Patient educated, message sent to PCP. Patient is awake, alert, and oriented. States she feels well. Denies complaints. Patient is being prepped for discharge home in stable condition. All questions answered. [facility] follows with [facility], follow up set. - Time Spent with Patient Total time spent providing and/or coordinating discharge services: Less than 30 minutes - Discharge Medications Prescriptions: Sotalol [Betapace] 80 mg PO Q12HR #60 tablet Diltiazem CD (24hr) [Cardizem CD] 180 mg PO DAILY #30 cap.er.24h Home Medications: Levothyroxine Sodium [Levo-T] 100 mcg PO DAILY 01/01/17 [History] Mv,Ca,Fe,Min/FA/Guarana/Caff [One Daily Tablet] 1 tab PO DAILY 01/01/17 [History] hydroCHLOROthiazide [Hydrochlorothiazide] 25 mg PO DAILY 01/01/17 [History] Furosemide [Lasix] 20 mg PO DAILY #30 tablet 01/04/17 [Rx] Cinnamon Bark [Cinnamon] 500 mg PO DAILY 02/26/18 [History] Ergocalciferol (VITAMIN D2) [Vitamin D2] 2,000 unit PO DAILY 02/26/18 [History] Metoprolol Succinate [Toprol Xl] 100 mg PO DAILY 02/26/18 [History] Diltiazem CD (24hr) [Cardizem CD] 180 mg PO DAILY #30 cap.er.24h 03/01/18 [Rx] Sotalol [Betapace] 80 mg PO Q12HR #60 tablet 03/01/18 [Rx] Warfarin [Coumadin] 4 mg PO AD #0 03/01/18 [Rx] Allergies/Adverse Reactions: Allergy/AdvReac Type Severity Reaction Status Date / Time Ajrdskj-Vni-Xct Reductase AdvReac Weakness Verified 02/26/18 17:02 Inhibitor [Statins] Date of admission: 02/26/18 10:32 Primary care physician: PCP NONE Discharging clinician: Chichi Nair Anticipated date of discharge: 03/01/18 Physical Examination Vital Signs, Last 4 Hours Temp Pulse Resp BP Pulse Ox 03/01/18 12:59 97.7 F 53 20 102/60 96 03/01/18 11:09 97.8 F 96 16 143/99 93 General: Conversant, No Apparent Distress HEENT: Atraumatic, Normocephaly, Mucus Membranes Moist Neck: No JVD, Normal carotid pulses Cardiac: Reg Rate and Rhythm, Normal S1 and S2, No Murmur Lungs: Normal Breath Sounds, No Wheeze, Rales, Rhonchi Neuro: Alert and responsive, No focal deficits noted Abdomen: Soft, Non-Tender Skin: No rashes noted on visualized skin Musculoskeletal: No Chest Wall Tenderness Extremities: No Clubbing, No Cyanosis, No Edema, Normal Pulses - Patient Status Disposition: Home, Self-Care Condition: Good Functional capacity at discharge: uses cane/walker Overall status at discharge: patient is progressing back to baseline - Discharge Instructions Follow Up With: Jojo Doe MD [Partnered Physician] - 03/05/18 1:00 pm (Please follow-up as scheduled ) NONE,PCP [Primary Care Provider] - - Diet and Activity Activity: increase activity as tolerated Diet: advance to your usual diet - VTE Reasons for not Prescribing Prophylaxis: Not indicated-Anticoagulated or INR therapeutic
--- NOTE | 2018-03-01 14:37 | Electrocardiograph Report ---
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
--- NOTE | 2018-03-01 14:59 | Electrocardiograph Report ---
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
[2018-03-01] MEDS ORDERED: *HR* Warfarin 4 MG TABLET PO ONE (18:00)
--- NOTE | 2018-03-04 12:46 | Electrocardiograph Report ---
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
--- NOTE | 2018-03-06 15:15 | Electrocardiograph Report ---
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
== END 2018-03-01 15:01 | disposition home or self-care (01) ==
LOC: 2ANU → PREINTOOBSV 07:57
PROVIDERS: ADMIT Internal Medicine Clinical Cardiac Electrophysiology; ATTEND Internal Medicine Clinical Cardiac Electrophysiology

== ENCOUNTER 2020-12-26 12:56 | Inpatient (IN) ==
[2020-12-26] MEDS ORDERED: Naloxone 0.4 MG/ML INJ IVP PRN (16:19)
[2020-12-26] MEDS ORDERED: Ondansetron 4 MG/2 ML VIAL IVP PRN (16:19)
[2020-12-26] MEDS ORDERED: Benzonatate 100 MG CAPSULE PO PRN (16:24)
[2020-12-26] MEDS ORDERED: Furosemide 20 MG/2 ML VIAL IVP ONE (16:25)
[2020-12-26] MEDS ORDERED: Potassium Chloride Elixir 20 MEQ/15 ML UDC PO ONE (16:25)
[2020-12-26] MEDS: Doxycycline 100 MG in 0.9 % Sodium Chloride Mini Bag 100 ML IVPB SCH (17:50)
[2020-12-26] MEDS: cefTRIAXone 1,000 MG in Water for inj. (sterile) 10 ML IVP SCH (17:52)
[2020-12-26] MEDS: Apixaban 5 MG TABLET PO SCH (19:55)
[2020-12-27 03:09] LABS: Basophils % 0.1 %; Hematocrit 44.5 % (35.3-44.9); Hemoglobin 14.3 g/dL (11.5-15.4); Immature Granulocytes % 0.6 % (0-4); Lymphocytes # 0.9 K/mcL (0.6-4.6); Lymphocytes % 9.4 %; Mean Corpuscular HGB Conc 32.1 g/dL (31.6-35.5); Mean Corpuscular Volume 93.5 fL (83.0-100.0); Monocytes # 0.7 K/mcL (0.0-1.3); Monocytes % 7.4 %; Neutrophils # 7.9 K/mcL (1.6-8.9); Platelet Count 180 K/mcL (140-400); Red Blood Count 4.76 M/mcL (3.82-4.97); Segmented Neutrophils % 82.5 %; White Blood Count 9.6 K/mcL (4.3-11.1)
[2020-12-27 03:32] LABS: Alanine Aminotransferase 17 Units/L (7-52); Albumin 3.1 g/dL (3.5-5.7); Alkaline Phosphatase 38 Units/L (34-104); Aspartate Amino Transferase 25 Units/L (13-39); BUN/Creatinine Ratio 25 (6-26); Bilirubin,Direct 0.1 mg/dL (0.0-0.2); Bilirubin,Indirect 0.2 mg/dL (0.0-1.0); Bilirubin,Total 0.3 mg/dL (0.3-1.0); Blood Urea Nitrogen 20 mg/dL (8-23); Calcium 8.5 mg/dL (8.6-10.3); Carbon Dioxide 28 mEq/L (23-29); Chloride 102 mEq/L (98-107); Globulin 3.2 g/dL (2.4-3.5); Glucose 158 mg/dL (70-105); Magnesium 1.9 mg/dL (1.6-2.6); Osmolality,Calculated 294 (280-300); Potassium 3.8 mEq/L (3.5-5.1); Sodium 139 mEq/L (136-145); Total Protein 6.3 g/dL (6.4-8.9); eGFR For African Americans > 60 (> 60); eGFR For Non-African Americans > 60 (> 60)
[2020-12-27 03:45] LABS: Thyroid Stimulating Hormone 1.095 mcIU/mL (0.340-5.600)
[2020-12-27] MEDS: Doxycycline 100 MG in 0.9 % Sodium Chloride Mini Bag 100 ML IVPB SCH ×2 (06:34→17:57)
[2020-12-27] MEDS ORDERED: Dextrose Gel 15 GM/37.5 ML TUBE PO PRN ×2 (07:36)
[2020-12-27] MEDS ORDERED: D5% in Water 1,000 ML IVC PRN (07:36)
[2020-12-27] MEDS ORDERED: *HR* Dextrose 50 % in Water (Syg) 50 ML SYRINGE IVP PRN (07:36)
[2020-12-27] MEDS: DilTIAZem CD (24hr) 180 MG CAP.ER.24H PO SCH (09:26)
[2020-12-27] MEDS: Apixaban 5 MG TABLET PO SCH ×2 (09:26→22:04)
[2020-12-27] MEDS: cefTRIAXone 1,000 MG in Water for inj. (sterile) 10 ML IVP SCH (09:27)
[2020-12-27] MEDS: Dexamethasone Sodium Phos/PF 10 MG/ML VIAL IVP SCH (09:28)
[2020-12-27] MEDS ORDERED: ALPRAZolam 0.25 MG TABLET PO ONE (10:40)
[2020-12-27] MEDS: Insulin LISPRO 300 UNITS/3 ML VIAL SUBQ SCH ×2 (12:50→16:23)
[2020-12-27] MEDS: Dexmedetomidine HCl 400 MCG/100 ML MLS IVC SCH (15:44)
[2020-12-27 17:43] LABS: C-Reactive Protein 147 mg/L (Less than 10)
[2020-12-27] MEDS: Acetaminophen 325 MG TABLET PO PRN (22:04)
[2020-12-27] MEDS: Furosemide 20 MG/2 ML VIAL IVP SCH (22:04)
[2020-12-28] MEDS: Dexmedetomidine HCl 400 MCG/100 ML MLS IVC SCH (02:37)
[2020-12-28 04:54] LABS: Fibrinogen 594 mg/dL (169-393)
[2020-12-28 04:57] LABS: D-Dimer 381 ng/mLFEU (0-500)
[2020-12-28 05:04] LABS: Magnesium 1.9 mg/dL (1.6-2.6); Phosphorous 3.5 mg/dL (2.7-4.5)
[2020-12-28] MEDS: Doxycycline 100 MG in 0.9 % Sodium Chloride Mini Bag 100 ML IVPB SCH ×2 (06:17→18:30)
[2020-12-28] MEDS: Dexamethasone Sodium Phos/PF 10 MG/ML VIAL IVP SCH (08:32)
[2020-12-28] MEDS: cefTRIAXone 1,000 MG in Water for inj. (sterile) 10 ML IVP SCH (08:33)
[2020-12-28] MEDS: Furosemide 20 MG/2 ML VIAL IVP SCH ×2 (08:33→21:06)
[2020-12-28] MEDS: Apixaban 5 MG TABLET PO SCH ×2 (08:34→21:06)
[2020-12-28] MEDS: Cholecalciferol (D-3) 1,000 UNIT (25MCG) TABLET PO SCH (08:34)
[2020-12-28] MEDS: Insulin LISPRO 300 UNITS/3 ML VIAL SUBQ SCH ×3 (08:35→17:57)
[2020-12-28] MEDS: DilTIAZem CD (24hr) 180 MG CAP.ER.24H PO SCH (08:35)
[2020-12-28] MEDS ORDERED: NON-FORMULARY MEDICATION 1 EACH EACH (Ezetimibe 10 MG Tablet) PO SCH (09:00)
[2020-12-28 10:12] LABS: Basophils % 0.1 %; Hematocrit 45.3 % (35.3-44.9); Hemoglobin 14.6 g/dL (11.5-15.4); Immature Granulocytes % 0.7 % (0-4); Lymphocytes # 0.6 K/mcL (0.6-4.6); Lymphocytes % 4.7 %; Mean Corpuscular HGB Conc 32.2 g/dL (31.6-35.5); Mean Corpuscular Hemoglobin 30.2 pg (28.0-33.3); Mean Corpuscular Volume 93.6 fL (83.0-100.0); Mean Platelet Volume 11.3 fL (9.4-12.4); Monocytes # 0.7 K/mcL (0.0-1.3); Monocytes % 4.9 %; Neutrophils # 12.3 K/mcL (1.6-8.9); Platelet Count 207 K/mcL (140-400); Red Blood Count 4.84 M/mcL (3.82-4.97); Red Cell Distribution Width 13.9 % (11.5-14.5); Segmented Neutrophils % 89.6 %; White Blood Count 13.7 K/mcL (4.3-11.1)
[2020-12-28 10:42] LABS: BUN/Creatinine Ratio 39 (6-26); Blood Urea Nitrogen 31 mg/dL (8-23); Calcium 8.5 mg/dL (8.6-10.3); Carbon Dioxide 30 mEq/L (23-29); Chloride 101 mEq/L (98-107); Glucose 167 mg/dL (70-105); Osmolality,Calculated 302 (280-300); Potassium 3.9 mEq/L (3.5-5.1); Sodium 141 mEq/L (136-145); eGFR For African Americans > 60 (> 60); eGFR For Non-African Americans > 60 (> 60)
[2020-12-28] MEDS ORDERED: Ipratropium 1 PUFF INHALER IH PRN (12:30)
[2020-12-28] MEDS: *HR* LORazepam 2 MG/ML VIAL IVP PRN (22:30)
[2020-12-29] MEDS: Dexmedetomidine HCl 400 MCG/100 ML MLS IVC SCH ×2 (01:24→21:42)
[2020-12-29 04:52] LABS: ABG Base Excess 5 mEq/L (-2 to 3); ABG HCO3 30 mEq/L (21-27); ABG Oxygen Saturation 94 % (95-98); ABG PCO2 44 mmHg (35-45); ABG PH 7.45 pH Units (7.32-7.45); ABG PO2 68 mmHg (85-104); ABG TCO2 32 mEq/L (20-26)
[2020-12-29] MEDS: Doxycycline 100 MG in 0.9 % Sodium Chloride Mini Bag 100 ML IVPB SCH ×2 (05:14→19:21)
[2020-12-29] MEDS: *HR* LORazepam 2 MG/ML VIAL IVP PRN (05:19)
[2020-12-29 05:28] LABS: BUN/Creatinine Ratio 50 (6-26); Blood Urea Nitrogen 38 mg/dL (8-23); Calcium 8.6 mg/dL (8.6-10.3); Carbon Dioxide 29 mEq/L (23-29); Chloride 103 mEq/L (98-107); Glucose 162 mg/dL (70-105); Osmolality,Calculated 307 (280-300); Phosphorous 3.3 mg/dL (2.7-4.5); Potassium 3.8 mEq/L (3.5-5.1); Sodium 142 mEq/L (136-145); eGFR For African Americans > 60 (> 60); eGFR For Non-African Americans > 60 (> 60)
[2020-12-29 06:07] LABS: Basophils % 0.1 %; Hematocrit 45.3 % (35.3-44.9); Hemoglobin 14.6 g/dL (11.5-15.4); Immature Granulocytes % 1.3 % (0-4); Lymphocytes # 0.5 K/mcL (0.6-4.6); Mean Corpuscular HGB Conc 32.2 g/dL (31.6-35.5); Mean Corpuscular Volume 93.2 fL (83.0-100.0); Mean Platelet Volume 11.7 fL (9.4-12.4); Monocytes # 0.8 K/mcL (0.0-1.3); Monocytes % 5.9 %; Neutrophils # 11.8 K/mcL (1.6-8.9); Platelet Count 230 K/mcL (140-400); Red Blood Count 4.86 M/mcL (3.82-4.97); Red Cell Distribution Width 13.9 % (11.5-14.5); Segmented Neutrophils % 88.7 %; White Blood Count 13.4 K/mcL (4.3-11.1)
[2020-12-29] MEDS: cefTRIAXone 1,000 MG in Water for inj. (sterile) 10 ML IVP SCH (10:05)
[2020-12-29] MEDS: Furosemide 20 MG/2 ML VIAL IVP SCH ×2 (10:06→19:46)
[2020-12-29] MEDS: Dexamethasone Sodium Phos/PF 10 MG/ML VIAL IVP SCH (10:07)
[2020-12-29] MEDS: Insulin LISPRO 300 UNITS/3 ML VIAL SUBQ SCH ×3 (10:07→17:18)
[2020-12-29] MEDS: Apixaban 5 MG TABLET PO SCH (10:08)
[2020-12-29] MEDS: DilTIAZem CD (24hr) 180 MG CAP.ER.24H PO SCH (10:08)
[2020-12-29] MEDS: Cholecalciferol (D-3) 1,000 UNIT (25MCG) TABLET PO SCH (10:08)
[2020-12-29] MEDS ORDERED: *HR* Propofol 200 MG/20 ML VIAL IVP ONE (11:57)
[2020-12-29] MEDS ORDERED: *HR* Etomidate 20 MG/10 ML AMPUL IVP ONE (11:57)
[2020-12-29] MEDS ORDERED: *HR* Midazolam HCl 2 MG/2 ML VIAL IVP ONE (11:57)
[2020-12-29] MEDS ORDERED: *HR* LORazepam 2 MG/ML VIAL IVP ONE (15:43)
[2020-12-29] MEDS ORDERED: Artificial Tears SOLN 15 ML BOTTLE BOTH EYES PRN (16:12)
[2020-12-29] MEDS ORDERED: *HR* Heparin 5,000 UNIT/ML VIAL IVP PRN ×2 (16:21)
[2020-12-29] MEDS ORDERED: *HR* Atropine Sulfate 1 MG/10 ML SYRINGE ONE (16:40)
[2020-12-29] MEDS: FentaNYL (PF) 1,000 MCG/100 ML IV.SOLN IVC SCH (17:15)
[2020-12-29 18:33] LABS: ABG Base Excess 7 mEq/L (-2 to 3); ABG HCO3 33 mEq/L (21-27); ABG Oxygen Saturation 92 % (95-98); ABG PCO2 49 mmHg (35-45); ABG PH 7.43 pH Units (7.32-7.45); ABG PO2 63 mmHg (85-104); ABG TCO2 34 mEq/L (20-26); Blood Gas Modality AF; Blood Gas VT 500 cc
[2020-12-29 18:48] LABS: Hematocrit 46.6 % (35.3-44.9); Hemoglobin 14.5 g/dL (11.5-15.4); Mean Corpuscular HGB Conc 31.1 g/dL (31.6-35.5); Mean Corpuscular Hemoglobin 29.4 pg (28.0-33.3); Mean Corpuscular Volume 94.3 fL (83.0-100.0); Mean Platelet Volume 11.6 fL (9.4-12.4); Platelet Count 208 K/mcL (140-400); Red Blood Count 4.94 M/mcL (3.82-4.97)
[2020-12-29 18:56] LABS: INR 1.6; Prothrombin Time 17.7 Seconds (9.4-12.1)
[2020-12-29 18:58] LABS: Activated Partial Thrombo Time 24.4 Seconds (26.0-36.0)
[2020-12-29] MEDS: Cisatracurium 200 MG in 0.9 % Sodium Chloride 180 ML IVC SCH (19:22)
[2020-12-29] MEDS: Heparin 25,000UNIT/250ML 1/2NS 25,000 UNIT/250 ML IV.SOLN IVC SCH (19:23)
[2020-12-29] MEDS: Artificial Tears SOLN 15 ML BOTTLE BOTH EYES SCH (19:46)
[2020-12-29] MEDS: Chlorhexidine Rinse 15 ML MOUTHWASH MM SCH (19:46)
[2020-12-29 21:05] LABS: ABG Base Excess 6 mEq/L (-2 to 3); ABG HCO3 32 mEq/L (21-27); ABG Oxygen Saturation 93 % (95-98); ABG PCO2 47 mmHg (35-45); ABG PH 7.44 pH Units (7.32-7.45); ABG PO2 65 mmHg (85-104); ABG TCO2 33 mEq/L (20-26); Blood Gas Modality AF; Blood Gas VT 500 cc
[2020-12-29] MEDS: Norepinephrine 4 MG/254 ML IV.SOLN IVC SCH (22:36)
[2020-12-30] MEDS: Artificial Tears SOLN 15 ML BOTTLE BOTH EYES SCH ×6 (00:19→20:48)
[2020-12-30] MEDS: FentaNYL (PF) 1,000 MCG/100 ML IV.SOLN IVC SCH (00:20)
[2020-12-30 00:26] LABS: ABG Base Excess 5 mEq/L (-2 to 3); ABG HCO3 30 mEq/L (21-27); ABG Oxygen Saturation 95 % (95-98); ABG PCO2 45 mmHg (35-45); ABG PH 7.43 pH Units (7.32-7.45); ABG PO2 77 mmHg (85-104); ABG TCO2 31 mEq/L (20-26); Blood Gas Modality AF; Blood Gas VT 500 cc
[2020-12-30] MEDS: Cisatracurium 200 MG in 0.9 % Sodium Chloride 180 ML IVC SCH (03:10)
[2020-12-30 03:39] LABS: Basophils % 0.3 %; Hematocrit 45.2 % (35.3-44.9); Hemoglobin 14.4 g/dL (11.5-15.4); Immature Granulocytes % 2.1 % (0-4); Lymphocytes # 0.5 K/mcL (0.6-4.6); Lymphocytes % 3.2 %; Mean Corpuscular HGB Conc 31.9 g/dL (31.6-35.5); Mean Corpuscular Hemoglobin 30.1 pg (28.0-33.3); Mean Corpuscular Volume 94.4 fL (83.0-100.0); Mean Platelet Volume 11.5 fL (9.4-12.4); Monocytes # 0.9 K/mcL (0.0-1.3); Monocytes % 6.5 %; Neutrophils # 12.4 K/mcL (1.6-8.9); Platelet Count 225 K/mcL (140-400); Red Blood Count 4.79 M/mcL (3.82-4.97); Red Cell Distribution Width 14.1 % (11.5-14.5); Segmented Neutrophils % 87.9 %; White Blood Count 14.1 K/mcL (4.3-11.1)
[2020-12-30 03:48] LABS: Fibrinogen 627 mg/dL (169-393)
[2020-12-30 03:57] LABS: BUN/Creatinine Ratio 60 (6-26); Blood Urea Nitrogen 43 mg/dL (8-23); Calcium 8.5 mg/dL (8.6-10.3); Carbon Dioxide 32 mEq/L (23-29); Chloride 103 mEq/L (98-107); Glucose 199 mg/dL (70-105); Osmolality,Calculated 314 (280-300); Potassium 3.8 mEq/L (3.5-5.1); Sodium 144 mEq/L (136-145); eGFR For African Americans > 60 (> 60); eGFR For Non-African Americans > 60 (> 60)
[2020-12-30 03:59] LABS: Magnesium 2.1 mg/dL (1.6-2.6); Phosphorous 3.6 mg/dL (2.7-4.5)
[2020-12-30 04:05] LABS: D-Dimer 1353 ng/mLFEU (0-500)
[2020-12-30] MEDS: Norepinephrine 4 MG/254 ML IV.SOLN IVC SCH ×2 (04:06→20:49)
[2020-12-30] MEDS: Dexmedetomidine HCl 400 MCG/100 ML MLS IVC SCH ×3 (04:13→18:05)
[2020-12-30 04:14] LABS: VBG Ionized Calcium 1.15 mmol/L (1.15-1.35)
[2020-12-30 05:02] LABS: ABG Base Excess 7 mEq/L (-2 to 3); ABG HCO3 30 mEq/L (21-27); ABG Oxygen Saturation 99 % (95-98); ABG PCO2 38 mmHg (35-45); ABG PH 7.51 pH Units (7.32-7.45); ABG PO2 105 mmHg (85-104); ABG TCO2 31 mEq/L (20-26); Blood Gas Modality AF; Blood Gas VT 500 cc
[2020-12-30] MEDS: Doxycycline 100 MG in 0.9 % Sodium Chloride Mini Bag 100 ML IVPB SCH ×2 (05:33→18:15)
[2020-12-30] MEDS ORDERED: Insulin LISPRO 300 UNITS/3 ML VIAL SUBQ SCH (06:00)
[2020-12-30] MEDS: cefTRIAXone 1,000 MG in Water for inj. (sterile) 10 ML IVP SCH (07:49)
[2020-12-30] MEDS: Chlorhexidine Rinse 15 ML MOUTHWASH MM SCH ×2 (07:49→20:48)
[2020-12-30] MEDS: Pantoprazole 40 MG VIAL IVP SCH (07:50)
[2020-12-30] MEDS: Dexamethasone Sodium Phos/PF 10 MG/ML VIAL IVP SCH (07:50)
[2020-12-30] MEDS: Furosemide 20 MG/2 ML VIAL IVP SCH ×2 (07:50→20:49)
[2020-12-30] MEDS: Cholecalciferol (D-3) 1,000 UNIT (25MCG) TABLET PO SCH (07:51)
[2020-12-30] MEDS: Heparin 25,000UNIT/250ML 1/2NS 25,000 UNIT/250 ML IV.SOLN IVC SCH (13:05)
[2020-12-30] MEDS: Insulin LISPRO 300 UNITS/3 ML VIAL SUBQ SCH ×2 (13:09→18:15)
[2020-12-30] MEDS ORDERED: 0.9 % Sodium Chloride 1,000 ML ONE (14:52)
[2020-12-30] MEDS ORDERED: Perflutren Lipid Microsphere 1.3 ML in 0.9 % Sodium Chloride 8.7 ML IVP PRN (17:28)
[2020-12-31] MEDS: Insulin LISPRO 300 UNITS/3 ML VIAL SUBQ SCH ×5 (00:25→23:17)
[2020-12-31] MEDS: Artificial Tears SOLN 15 ML BOTTLE BOTH EYES SCH ×8 (00:25→23:17)
[2020-12-31] MEDS: Dexmedetomidine HCl 400 MCG/100 ML MLS IVC SCH ×4 (00:26→20:21)
[2020-12-31] MEDS: Cisatracurium 200 MG in 0.9 % Sodium Chloride 180 ML IVC SCH ×2 (03:24→17:08)
[2020-12-31 04:20] LABS: Basophils # 0.1 K/mcL (0.0-0.2); Basophils % 0.5 %; Immature Granulocytes % 3.1 % (0-4); Lymphocytes # 0.7 K/mcL (0.6-4.6); Lymphocytes % 4.7 %; Mean Corpuscular HGB Conc 30.4 g/dL (31.6-35.5); Mean Corpuscular Hemoglobin 29.6 pg (28.0-33.3); Mean Corpuscular Volume 97.3 fL (83.0-100.0); Mean Platelet Volume 11.4 fL (9.4-12.4); Monocytes # 1.2 K/mcL (0.0-1.3); Monocytes % 8.4 %; Neutrophils # 11.7 K/mcL (1.6-8.9); Platelet Count 231 K/mcL (140-400); Red Blood Count 4.73 M/mcL (3.82-4.97); Red Cell Distribution Width 13.9 % (11.5-14.5); Segmented Neutrophils % 83.3 %
[2020-12-31] MEDS: FentaNYL (PF) 1,000 MCG/100 ML IV.SOLN IVC SCH ×2 (04:22→18:19)
[2020-12-31] MEDS: Heparin 25,000UNIT/250ML 1/2NS 25,000 UNIT/250 ML IV.SOLN IVC SCH ×2 (04:23→08:48)
[2020-12-31 04:26] LABS: VBG Ionized Calcium 1.14 mmol/L (1.15-1.35)
[2020-12-31 04:42] LABS: Alanine Aminotransferase 28 Units/L (7-52); Albumin 2.7 g/dL (3.5-5.7); Alkaline Phosphatase 35 Units/L (34-104); Aspartate Amino Transferase 20 Units/L (13-39); BUN/Creatinine Ratio 61 (6-26); Bilirubin,Total 0.8 mg/dL (0.3-1.0); Blood Urea Nitrogen 53 mg/dL (8-23); Calcium 8.3 mg/dL (8.6-10.3); Carbon Dioxide 33 mEq/L (23-29); Chloride 105 mEq/L (98-107); Globulin 2.8 g/dL (2.4-3.5); Glucose 185 mg/dL (70-105); Magnesium 2.4 mg/dL (1.6-2.6); Osmolality,Calculated 321 (280-300); Phosphorous 4.2 mg/dL (2.7-4.5); Potassium 4.1 mEq/L (3.5-5.1); Sodium 146 mEq/L (136-145); Total Protein 5.5 g/dL (6.4-8.9); eGFR For African Americans > 60 (> 60); eGFR For Non-African Americans > 60 (> 60)
[2020-12-31 05:23] LABS: ABG Base Excess 4 mEq/L (-2 to 3); ABG HCO3 32 mEq/L (21-27); ABG Oxygen Saturation 98 % (95-98); ABG PCO2 55 mmHg (35-45); ABG PH 7.36 pH Units (7.32-7.45); ABG PO2 105 mmHg (85-104); ABG TCO2 33 mEq/L (20-26); Blood Gas Modality AF; Blood Gas VT 420 cc
[2020-12-31] MEDS: Doxycycline 100 MG in 0.9 % Sodium Chloride Mini Bag 100 ML IVPB SCH ×2 (05:53→17:24)
[2020-12-31] MEDS: Norepinephrine 4 MG/254 ML IV.SOLN IVC SCH ×2 (07:31→20:08)
[2020-12-31] MEDS: cefTRIAXone 1,000 MG in Water for inj. (sterile) 10 ML IVP SCH (08:42)
[2020-12-31] MEDS: Pantoprazole 40 MG VIAL IVP SCH (08:42)
[2020-12-31] MEDS: Furosemide 20 MG/2 ML VIAL IVP SCH (08:42)
[2020-12-31] MEDS: Dexamethasone Sodium Phos/PF 10 MG/ML VIAL IVP SCH (08:42)
[2020-12-31] MEDS: Chlorhexidine Rinse 15 ML MOUTHWASH MM SCH ×2 (08:42→20:09)
[2020-12-31] MEDS: Cholecalciferol (D-3) 1,000 UNIT (25MCG) TABLET PO SCH (08:42)
[2021-01-01] MEDS: Dexmedetomidine HCl 400 MCG/100 ML MLS IVC SCH ×4 (02:52→23:13)
[2021-01-01] MEDS: Insulin LISPRO 300 UNITS/3 ML VIAL SUBQ SCH ×4 (03:52→23:18)
[2021-01-01] MEDS: Artificial Tears SOLN 15 ML BOTTLE BOTH EYES SCH ×6 (03:52→23:18)
[2021-01-01 04:03] LABS: ABG Base Excess 5 mEq/L (-2 to 3); ABG HCO3 32 mEq/L (21-27); ABG Oxygen Saturation 98 % (95-98); ABG PCO2 56 mmHg (35-45); ABG PH 7.37 pH Units (7.32-7.45); ABG PO2 110 mmHg (85-104); ABG TCO2 34 mEq/L (20-26); Blood Gas Modality ASSIST CONTROL; Blood Gas VT 420 cc
[2021-01-01] MEDS: Cisatracurium 200 MG in 0.9 % Sodium Chloride 180 ML IVC SCH (04:19)
[2021-01-01] MEDS: Doxycycline 100 MG in 0.9 % Sodium Chloride Mini Bag 100 ML IVPB SCH ×2 (04:53→16:47)
[2021-01-01 05:04] LABS: Basophils # 0.1 K/mcL (0.0-0.2); Basophils % 0.5 %; Hematocrit 45.7 % (35.3-44.9); Hemoglobin 13.8 g/dL (11.5-15.4); Immature Granulocytes % 4.2 % (0-4); Lymphocytes # 0.6 K/mcL (0.6-4.6); Lymphocytes % 4.6 %; Mean Corpuscular HGB Conc 30.2 g/dL (31.6-35.5); Mean Platelet Volume 11.2 fL (9.4-12.4); Monocytes # 1.4 K/mcL (0.0-1.3); Monocytes % 10.3 %; Neutrophils # 10.9 K/mcL (1.6-8.9); Nucleated Red Blood Cells 0.1 /100 WBC (0); Platelet Count 206 K/mcL (140-400); Red Blood Count 4.76 M/mcL (3.82-4.97); Red Cell Distribution Width 14.1 % (11.5-14.5); Segmented Neutrophils % 80.4 %; White Blood Count 13.6 K/mcL (4.3-11.1)
[2021-01-01 05:09] LABS: VBG Ionized Calcium 1.12 mmol/L (1.15-1.35)
[2021-01-01 05:24] LABS: Alanine Aminotransferase 49 Units/L (7-52); Albumin 2.6 g/dL (3.5-5.7); Alkaline Phosphatase 33 Units/L (34-104); Aspartate Amino Transferase 31 Units/L (13-39); BUN/Creatinine Ratio 62 (6-26); Bilirubin,Total 1.1 mg/dL (0.3-1.0); Blood Urea Nitrogen 61 mg/dL (8-23); Calcium 8.3 mg/dL (8.6-10.3); Carbon Dioxide 32 mEq/L (23-29); Chloride 108 mEq/L (98-107); Globulin 2.6 g/dL (2.4-3.5); Glucose 185 mg/dL (70-105); Magnesium 2.4 mg/dL (1.6-2.6); Osmolality,Calculated 324 (280-300); Phosphorous 3.8 mg/dL (2.7-4.5); Potassium 4.2 mEq/L (3.5-5.1); Sodium 146 mEq/L (136-145); Total Protein 5.2 g/dL (6.4-8.9); eGFR For African Americans > 60 (> 60); eGFR For Non-African Americans 54 (> 60)
[2021-01-01] MEDS: FentaNYL (PF) 1,000 MCG/100 ML IV.SOLN IVC SCH ×2 (06:41→23:30)
[2021-01-01] MEDS: Cholecalciferol (D-3) 1,000 UNIT (25MCG) TABLET PO SCH (07:29)
[2021-01-01] MEDS: Pantoprazole 40 MG VIAL IVP SCH ×2 (07:29→17:49)
[2021-01-01] MEDS: Chlorhexidine Rinse 15 ML MOUTHWASH MM SCH ×2 (07:29→20:42)
[2021-01-01] MEDS: cefTRIAXone 1,000 MG in Water for inj. (sterile) 10 ML IVP SCH (07:29)
[2021-01-01] MEDS: Dexamethasone Sodium Phos/PF 10 MG/ML VIAL IVP SCH (07:30)
[2021-01-01] MEDS: Heparin 25,000UNIT/250ML 1/2NS 25,000 UNIT/250 ML IV.SOLN IVC SCH (08:52)
[2021-01-01] MEDS: Norepinephrine 4 MG/254 ML IV.SOLN IVC SCH ×2 (11:18→23:19)
[2021-01-02] MEDS: Artificial Tears SOLN 15 ML BOTTLE BOTH EYES SCH ×6 (04:05→23:35)
[2021-01-02 04:12] LABS: ABG Base Excess 5 mEq/L (-2 to 3); ABG HCO3 31 mEq/L (21-27); ABG Oxygen Saturation 95 % (95-98); ABG PCO2 50 mmHg (35-45); ABG PH 7.41 pH Units (7.32-7.45); ABG PO2 75 mmHg (85-104); ABG TCO2 33 mEq/L (20-26); Blood Gas VT 420 cc
[2021-01-02 04:44] LABS: VBG Ionized Calcium 1.19 mmol/L (1.15-1.35)
[2021-01-02 04:49] LABS: Basophils # 0.1 K/mcL (0.0-0.2); Basophils % 0.5 %; Hematocrit 44.4 % (35.3-44.9); Hemoglobin 13.6 g/dL (11.5-15.4); Immature Granulocytes % 6.3 % (0-4); Lymphocytes # 0.7 K/mcL (0.6-4.6); Mean Corpuscular HGB Conc 30.6 g/dL (31.6-35.5); Mean Corpuscular Hemoglobin 29.4 pg (28.0-33.3); Mean Corpuscular Volume 95.9 fL (83.0-100.0); Monocytes # 1.9 K/mcL (0.0-1.3); Monocytes % 12.7 %; Neutrophils # 11.1 K/mcL (1.6-8.9); Nucleated Red Blood Cells 0.3 /100 WBC (0); Platelet Count 204 K/mcL (140-400); Red Blood Count 4.63 M/mcL (3.82-4.97); Red Cell Distribution Width 14.4 % (11.5-14.5); Segmented Neutrophils % 75.5 %; White Blood Count 14.7 K/mcL (4.3-11.1)
[2021-01-02 04:57] LABS: Albumin 2.6 g/dL (3.5-5.7); Albumin/Globulin Ratio 1.1 (1.1-2.2); Bilirubin,Total 1.8 mg/dL (0.3-1.0); Calcium 8.7 mg/dL (8.6-10.3); Globulin 2.3 g/dL (2.4-3.5); Magnesium 2.6 mg/dL (1.6-2.6); Phosphorous 3.5 mg/dL (2.7-4.5); Potassium 4.5 mEq/L (3.5-5.1); Total Protein 4.9 g/dL (6.4-8.9)
[2021-01-02] MEDS: Pantoprazole 40 MG VIAL IVP SCH ×2 (05:05→16:36)
[2021-01-02] MEDS: Insulin LISPRO 300 UNITS/3 ML VIAL SUBQ SCH ×4 (05:08→23:35)
[2021-01-02] MEDS: Dexmedetomidine HCl 400 MCG/100 ML MLS IVC SCH ×3 (05:37→19:19)
[2021-01-02] MEDS: Heparin 25,000UNIT/250ML 1/2NS 25,000 UNIT/250 ML IV.SOLN IVC SCH (06:52)
[2021-01-02] MEDS: Dexamethasone Sodium Phos/PF 10 MG/ML VIAL IVP SCH (07:35)
[2021-01-02] MEDS: Chlorhexidine Rinse 15 ML MOUTHWASH MM SCH ×2 (07:36→19:15)
[2021-01-02] MEDS: Cholecalciferol (D-3) 1,000 UNIT (25MCG) TABLET PO SCH (07:36)
[2021-01-02] MEDS: FentaNYL (PF) 1,000 MCG/100 ML IV.SOLN IVC SCH ×3 (08:33→23:48)
[2021-01-02] MEDS: Acetaminophen 325 MG TABLET PO PRN ×2 (08:58→20:20)
[2021-01-02] MEDS: Cefepime HCl 2,000 MG in Water for inj. (sterile) 20 ML IVP SCH (11:31)
[2021-01-02 12:06] LABS: Bilirubin,Urine Negative (Negative); Blood,Urine Negative (Negative); Clarity,Urine Clear (Clear); Color,Urine Yellow (Yellow); Glucose,Urine (UA) Normal (Normal); Ketones,Urine Negative (Negative); Leukocyte Esterase,Urine Negative (Negative); Nitrite,Urine Negative (Negative); Protein,Urine Trace mg/dL (Neg-Trace); Specific Gravity,Urine 1.028 (1.010-1.025); Urobilinogen,Urine Normal (Normal)
[2021-01-02] MEDS ORDERED: *HR* Digoxin 0.5 MG/2 ML AMPUL IVP ONE (13:15)
[2021-01-02] MEDS: Vancomycin 1,500 MG/265 ML IV.SOLN IVPB SCH (13:25)
[2021-01-02] MEDS: Norepinephrine 4 MG/254 ML IV.SOLN IVC SCH ×2 (15:29→23:35)
[2021-01-02] MEDS: *HR* Metoprolol 5 MG/5 ML VIAL IVP SCH ×2 (16:36→23:35)
[2021-01-03 02:39] LABS: Activated Partial Thrombo Time 76.4 Seconds (26.0-36.0)
[2021-01-03] MEDS: Artificial Tears SOLN 15 ML BOTTLE BOTH EYES SCH ×6 (03:50→23:53)
[2021-01-03 04:12] LABS: Hematocrit 42.4 % (35.3-44.9); Hemoglobin 12.8 g/dL (11.5-15.4); Mean Corpuscular HGB Conc 30.2 g/dL (31.6-35.5); Mean Corpuscular Volume 96.1 fL (83.0-100.0); Mean Platelet Volume 12.4 fL (9.4-12.4); Nucleated Red Blood Cells 0.2 /100 WBC (0); Platelet Count 152 K/mcL (140-400); Red Blood Count 4.41 M/mcL (3.82-4.97)
[2021-01-03 04:24] LABS: Alanine Aminotransferase 118 Units/L (7-52); Albumin 2.4 g/dL (3.5-5.7); Albumin/Globulin Ratio 1.1 (1.1-2.2); Alkaline Phosphatase 27 Units/L (34-104); Aspartate Amino Transferase 56 Units/L (13-39); BUN/Creatinine Ratio 64 (6-26); Bilirubin,Total 1.7 mg/dL (0.3-1.0); Blood Urea Nitrogen 63 mg/dL (8-23); Calcium 8.3 mg/dL (8.6-10.3); Carbon Dioxide 32 mEq/L (23-29); Chloride 111 mEq/L (98-107); Globulin 2.1 g/dL (2.4-3.5); Glucose 217 mg/dL (70-105); Osmolality,Calculated 327 (280-300); Potassium 4.4 mEq/L (3.5-5.1); Sodium 146 mEq/L (136-145); Total Protein 4.5 g/dL (6.4-8.9); eGFR For African Americans > 60 (> 60); eGFR For Non-African Americans 54 (> 60)
[2021-01-03 04:28] LABS: Lymphocytes # 1.4 K/mcL (0.6-4.6); Monocytes # 0.5 K/mcL (0.0-1.3); Neutrophils # 9.6 K/mcL (1.6-8.9)
[2021-01-03 04:29] LABS: Platelet Estimate Normal (Normal); Reactive Lymphocytes Present (Not Present)
[2021-01-03] MEDS: Dexmedetomidine HCl 400 MCG/100 ML MLS IVC SCH ×2 (05:00→22:14)
[2021-01-03 05:06] LABS: ABG Base Excess 4 mEq/L (-2 to 3); ABG HCO3 31 mEq/L (21-27); ABG Oxygen Saturation 93 % (95-98); ABG PCO2 54 mmHg (35-45); ABG PH 7.37 pH Units (7.32-7.45); ABG PO2 72 mmHg (85-104); ABG TCO2 32 mEq/L (20-26); Blood Gas Modality ASSIST CONTROL; Blood Gas VT 420 cc
[2021-01-03 05:28] LABS: VBG Ionized Calcium 1.22 mmol/L (1.15-1.35)
[2021-01-03] MEDS: *HR* Metoprolol 5 MG/5 ML VIAL IVP SCH ×4 (05:53→23:53)
[2021-01-03] MEDS: Pantoprazole 40 MG VIAL IVP SCH ×2 (05:54→16:23)
[2021-01-03] MEDS: Insulin LISPRO 300 UNITS/3 ML VIAL SUBQ SCH ×3 (05:54→20:04)
[2021-01-03] MEDS: Dexamethasone Sodium Phos/PF 10 MG/ML VIAL IVP SCH (08:18)
[2021-01-03] MEDS: Chlorhexidine Rinse 15 ML MOUTHWASH MM SCH ×2 (08:18→19:51)
[2021-01-03] MEDS: Cholecalciferol (D-3) 1,000 UNIT (25MCG) TABLET PO SCH (08:18)
[2021-01-03] MEDS: FentaNYL (PF) 1,000 MCG/100 ML IV.SOLN IVC SCH ×3 (08:19→23:00)
[2021-01-03] MEDS: Cefepime HCl 2,000 MG in Water for inj. (sterile) 20 ML IVP SCH (12:03)
[2021-01-03] MEDS: Vancomycin 1,500 MG/265 ML IV.SOLN IVPB SCH (12:06)
[2021-01-03] MEDS ORDERED: Insulin DETEMIR 100 UNIT/ML X5UNITS SUBQ ONE (13:30)
[2021-01-03] MEDS: Heparin 25,000UNIT/250ML 1/2NS 25,000 UNIT/250 ML IV.SOLN IVC SCH (13:49)
[2021-01-03] MEDS: Norepinephrine 4 MG/254 ML IV.SOLN IVC SCH (15:53)
[2021-01-03] MEDS: Cefepime HCl 1,000 MG in Water for inj. (sterile) 10 ML IVP SCH (16:22)
[2021-01-03] MEDS ORDERED: Insulin DETEMIR 100 UNIT/ML X5UNITS SUBQ SCH (21:00)
[2021-01-04] MEDS: Insulin LISPRO 300 UNITS/3 ML VIAL SUBQ SCH ×6 (00:19→20:08)
[2021-01-04] MEDS: Heparin 25,000UNIT/250ML 1/2NS 25,000 UNIT/250 ML IV.SOLN IVC SCH ×2 (01:05→19:18)
[2021-01-04] MEDS: Cefepime HCl 1,000 MG in Water for inj. (sterile) 10 ML IVP SCH ×3 (02:07→18:17)
[2021-01-04] MEDS: Artificial Tears SOLN 15 ML BOTTLE BOTH EYES SCH ×5 (04:06→20:08)
[2021-01-04 04:11] LABS: Basophils # 0.1 K/mcL (0.0-0.2); Basophils % 0.3 %; Hematocrit 39.9 % (35.3-44.9); Hemoglobin 12.1 g/dL (11.5-15.4); Immature Granulocytes % 3.9 % (0-4); Lymphocytes # 0.6 K/mcL (0.6-4.6); Lymphocytes % 2.8 %; Mean Corpuscular HGB Conc 30.3 g/dL (31.6-35.5); Mean Corpuscular Volume 95.7 fL (83.0-100.0); Mean Platelet Volume 12.9 fL (9.4-12.4); Monocytes # 1.9 K/mcL (0.0-1.3); Monocytes % 8.9 %; Neutrophils # 17.5 K/mcL (1.6-8.9); Nucleated Red Blood Cells 0.2 /100 WBC (0); Platelet Count 136 K/mcL (140-400); Red Blood Count 4.17 M/mcL (3.82-4.97); Red Cell Distribution Width 13.8 % (11.5-14.5); Segmented Neutrophils % 84.1 %
[2021-01-04 04:16] LABS: BUN/Creatinine Ratio 71 (6-26); Blood Urea Nitrogen 67 mg/dL (8-23); Calcium 8.2 mg/dL (8.6-10.3); Carbon Dioxide 28 mEq/L (23-29); Chloride 109 mEq/L (98-107); Glucose 307 mg/dL (70-105); Osmolality,Calculated 327 (280-300); Potassium 4.2 mEq/L (3.5-5.1); Sodium 143 mEq/L (136-145); White Blood Count 20.8 K/mcL (4.3-11.1); eGFR For African Americans > 60 (> 60); eGFR For Non-African Americans 56 (> 60)
[2021-01-04] MEDS: Norepinephrine 4 MG/254 ML IV.SOLN IVC SCH ×2 (04:16→19:18)
[2021-01-04 04:24] LABS: ABG Base Excess 4 mEq/L (-2 to 3); ABG HCO3 31 mEq/L (21-27); ABG Oxygen Saturation 93 % (95-98); ABG PCO2 60 mmHg (35-45); ABG PH 7.32 pH Units (7.32-7.45); ABG PO2 74 mmHg (85-104); ABG TCO2 33 mEq/L (20-26); Blood Gas Modality ASSIST CONTROL; Blood Gas VT 420 cc
[2021-01-04] MEDS: *HR* Metoprolol 5 MG/5 ML VIAL IVP SCH ×3 (05:30→18:17)
[2021-01-04] MEDS: Pantoprazole 40 MG VIAL IVP SCH (05:30)
[2021-01-04] MEDS: FentaNYL (PF) 1,000 MCG/100 ML IV.SOLN IVC SCH ×3 (06:54→23:17)
[2021-01-04] MEDS: Dexamethasone Sodium Phos/PF 10 MG/ML VIAL IVP SCH (08:58)
[2021-01-04] MEDS: Cholecalciferol (D-3) 1,000 UNIT (25MCG) TABLET PO SCH (08:59)
[2021-01-04] MEDS: Chlorhexidine Rinse 15 ML MOUTHWASH MM SCH ×2 (08:59→20:11)
[2021-01-04] MEDS: Insulin DETEMIR 100 UNIT/ML X5UNITS SUBQ SCH ×2 (11:20→20:12)
[2021-01-04] MEDS: Dexmedetomidine HCl 400 MCG/100 ML MLS IVC SCH (18:14)
[2021-01-05] MEDS: Insulin LISPRO 300 UNITS/3 ML VIAL SUBQ SCH ×7 (00:09→23:38)
[2021-01-05] MEDS: *HR* Metoprolol 5 MG/5 ML VIAL IVP SCH ×6 (00:09→23:14)
[2021-01-05] MEDS: Artificial Tears SOLN 15 ML BOTTLE BOTH EYES SCH ×7 (00:09→23:14)
[2021-01-05] MEDS: Cefepime HCl 1,000 MG in Water for inj. (sterile) 10 ML IVP SCH ×3 (02:50→18:29)
[2021-01-05] MEDS: Heparin 25,000UNIT/250ML 1/2NS 25,000 UNIT/250 ML IV.SOLN IVC SCH (03:52)
[2021-01-05 04:13] LABS: ABG Base Excess 3 mEq/L (-2 to 3); ABG HCO3 30 mEq/L (21-27); ABG Oxygen Saturation 83 % (95-98); ABG PCO2 62 mmHg (35-45); ABG PO2 54 mmHg (85-104); ABG TCO2 32 mEq/L (20-26); Blood Gas Modality ASSIST CONTROL; Blood Gas VT 420 cc
[2021-01-05 05:03] LABS: Basophils % 0.3 %; Mean Corpuscular Volume 95.8 fL (83.0-100.0)
[2021-01-05 05:06] LABS: Basophils # 0.1 K/mcL (0.0-0.2); Hematocrit 36.8 % (35.3-44.9); Hemoglobin 11.5 g/dL (11.5-15.4); Immature Granulocytes % 4.5 % (0-4); Immature Platelets 21.9 % (1.1-6.1); Lymphocytes # 0.6 K/mcL (0.6-4.6); Lymphocytes % 2.2 %; Mean Corpuscular HGB Conc 31.3 g/dL (31.6-35.5); Mean Corpuscular Hemoglobin 29.9 pg (28.0-33.3); Mean Platelet Volume 14.1 fL (9.4-12.4); Monocytes # 1.6 K/mcL (0.0-1.3); Monocytes % 6.5 %; Neutrophils # 21.6 K/mcL (1.6-8.9); Nucleated Red Blood Cells 0.1 /100 WBC (0); Platelet Count 126 K/mcL (140-400); Red Blood Count 3.84 M/mcL (3.82-4.97); Segmented Neutrophils % 86.5 %
[2021-01-05 05:26] LABS: Calcium 8.3 mg/dL (8.6-10.3); Potassium 4.8 mEq/L (3.5-5.1)
[2021-01-05] MEDS: Norepinephrine 4 MG/254 ML IV.SOLN IVC SCH ×2 (05:51→20:37)
[2021-01-05] MEDS: FentaNYL (PF) 1,000 MCG/100 ML IV.SOLN IVC SCH ×3 (06:09→19:30)
[2021-01-05] MEDS: Chlorhexidine Rinse 15 ML MOUTHWASH MM SCH ×2 (07:45→19:56)
[2021-01-05] MEDS: Pantoprazole 40 MG VIAL IVP SCH (07:45)
[2021-01-05] MEDS: Cholecalciferol (D-3) 1,000 UNIT (25MCG) TABLET PO SCH (07:46)
[2021-01-05] MEDS: Dexamethasone Sodium Phos/PF 10 MG/ML VIAL IVP SCH (07:46)
[2021-01-05] MEDS: Insulin DETEMIR 100 UNIT/ML X5UNITS SUBQ SCH ×2 (08:00→20:06)
[2021-01-05] MEDS: Dexmedetomidine HCl 400 MCG/100 ML MLS IVC SCH ×2 (09:56→20:07)
[2021-01-05] MEDS: Phenylephrine 10 MG in 0.9 % Sodium Chloride 250 ML IVC SCH (10:27)
[2021-01-06] MEDS: FentaNYL (PF) 1,000 MCG/100 ML IV.SOLN IVC SCH ×3 (01:44→17:28)
[2021-01-06] MEDS: Cefepime HCl 1,000 MG in Water for inj. (sterile) 10 ML IVP SCH ×3 (01:45→17:29)
[2021-01-06] MEDS: Heparin 25,000UNIT/250ML 1/2NS 25,000 UNIT/250 ML IV.SOLN IVC SCH ×2 (03:35→20:46)
[2021-01-06] MEDS: Artificial Tears SOLN 15 ML BOTTLE BOTH EYES SCH ×6 (03:36→23:16)
[2021-01-06 03:49] LABS: ABG Base Excess -1 mEq/L (-2 to 3); ABG HCO3 28 mEq/L (21-27); ABG Oxygen Saturation 85 % (95-98); ABG PCO2 65 mmHg (35-45); ABG PH 7.24 pH Units (7.32-7.45); ABG PO2 61 mmHg (85-104); ABG TCO2 30 mEq/L (20-26); Blood Gas VT 420 cc
[2021-01-06] MEDS: Insulin LISPRO 300 UNITS/3 ML VIAL SUBQ SCH ×5 (03:51→21:44)
[2021-01-06 04:10] LABS: Red Cell Distribution Width 14.4 % (11.5-14.5)
[2021-01-06 04:12] LABS: Basophils # 0.1 K/mcL (0.0-0.2); Basophils % 0.3 %; Hematocrit 34.4 % (35.3-44.9); Hemoglobin 10.3 g/dL (11.5-15.4); Immature Granulocytes % 4.8 % (0-4); Immature Platelets 19.2 % (1.1-6.1); Lymphocytes # 0.4 K/mcL (0.6-4.6); Mean Corpuscular HGB Conc 29.9 g/dL (31.6-35.5); Mean Corpuscular Hemoglobin 29.3 pg (28.0-33.3); Mean Platelet Volume 13.7 fL (9.4-12.4); Monocytes # 1.2 K/mcL (0.0-1.3); Monocytes % 6.7 %; Red Blood Count 3.51 M/mcL (3.82-4.97); Segmented Neutrophils % 86.2 %; White Blood Count 17.9 K/mcL (4.3-11.1)
[2021-01-06 04:21] LABS: Calcium 8.5 mg/dL (8.6-10.3); Magnesium 2.4 mg/dL (1.6-2.6); Phosphorous 6.3 mg/dL (2.7-4.5); Potassium 5.6 mEq/L (3.5-5.1)
[2021-01-06 04:40] LABS: Neutrophils # 15.4 K/mcL (1.6-8.9); Platelet Count 77 K/mcL (140-400)
[2021-01-06 04:41] LABS: Platelet Estimate Decreased (Normal)
[2021-01-06] MEDS: Dexmedetomidine HCl 400 MCG/100 ML MLS IVC SCH ×2 (04:58→16:07)
[2021-01-06] MEDS: Phenylephrine 10 MG in 0.9 % Sodium Chloride 250 ML IVC SCH (05:00)
[2021-01-06] MEDS: *HR* Metoprolol 5 MG/5 ML VIAL IVP SCH ×3 (05:13→17:29)
[2021-01-06] MEDS: Dexamethasone Sodium Phos/PF 10 MG/ML VIAL IVP SCH (07:56)
[2021-01-06] MEDS: Pantoprazole 40 MG VIAL IVP SCH (07:56)
[2021-01-06] MEDS: Cholecalciferol (D-3) 1,000 UNIT (25MCG) TABLET PO SCH (07:56)
[2021-01-06] MEDS: Chlorhexidine Rinse 15 ML MOUTHWASH MM SCH ×2 (07:56→21:42)
[2021-01-06] MEDS: Insulin DETEMIR 100 UNIT/ML X5UNITS SUBQ SCH ×2 (08:21→21:40)
[2021-01-06] MEDS: Norepinephrine 4 MG/254 ML IV.SOLN IVC SCH ×2 (09:45→23:16)
[2021-01-06 23:16] VITALS: O2SAT 100
[2021-01-07] MEDS: Dexmedetomidine HCl 400 MCG/100 ML MLS IVC SCH ×2 (00:25→06:41)
[2021-01-07] MEDS: FentaNYL (PF) 1,000 MCG/100 ML IV.SOLN IVC SCH ×2 (00:25→06:37)
[2021-01-07] MEDS: Insulin LISPRO 300 UNITS/3 ML VIAL SUBQ SCH ×2 (00:31→05:19)
[2021-01-07] MEDS: *HR* Metoprolol 5 MG/5 ML VIAL IVP SCH ×2 (00:58→05:38)
[2021-01-07] MEDS: Artificial Tears SOLN 15 ML BOTTLE BOTH EYES SCH (04:00)
[2021-01-07 04:08] LABS: ABG Base Excess -4 mEq/L (-2 to 3); ABG HCO3 25 mEq/L (21-27); ABG Oxygen Saturation 91 % (95-98); ABG PCO2 61 mmHg (35-45); ABG PH 7.22 pH Units (7.32-7.45); ABG PO2 76 mmHg (85-104); ABG TCO2 27 mEq/L (20-26); Blood Gas VT 450 cc
[2021-01-07 04:37] VITALS: TEMP 98.3
[2021-01-07 04:45] LABS: Basophils % 0.2 %; Nucleated Red Blood Cells 0.1 /100 WBC (0)
[2021-01-07 04:47] LABS: Immature Granulocytes % 4.6 % (0-4); Immature Platelets 20.1 % (1.1-6.1); Lymphocytes # 0.4 K/mcL (0.6-4.6); Mean Corpuscular HGB Conc 30.3 g/dL (31.6-35.5); Mean Corpuscular Hemoglobin 29.2 pg (28.0-33.3); Mean Corpuscular Volume 96.5 fL (83.0-100.0); Monocytes # 1.7 K/mcL (0.0-1.3); Monocytes % 8.1 %; Neutrophils # 17.4 K/mcL (1.6-8.9); Red Blood Count 3.42 M/mcL (3.82-4.97); Red Cell Distribution Width 14.4 % (11.5-14.5); Segmented Neutrophils % 85.1 %; White Blood Count 20.4 K/mcL (4.3-11.1)
[2021-01-07 04:50] LABS: Platelet Count 58 K/mcL (140-400)
[2021-01-07 04:53] LABS: Blood Urea Nitrogen > 130 mg/dL (8-23); Calcium 8.1 mg/dL (8.6-10.3); Carbon Dioxide 24 mEq/L (23-29); Chloride 101 mEq/L (98-107); Glucose 119 mg/dL (70-105); Magnesium 2.6 mg/dL (1.6-2.6); Potassium 6.5 mEq/L (3.5-5.1); Sodium 135 mEq/L (136-145); eGFR For African Americans 16 (> 60); eGFR For Non-African Americans 13 (> 60)
[2021-01-07] MEDS ORDERED: *HR* Dextrose 50 % in Water (Syg) 50 ML SYRINGE IVP ONE (05:16)
[2021-01-07] MEDS ORDERED: Insulin Human Regular 10 UNIT in 0.9 % Sodium Chloride 10 ML IV ONE (05:16)
[2021-01-07] MEDS: Phenylephrine 10 MG in 0.9 % Sodium Chloride 250 ML IVC SCH (05:19)
[2021-01-07] MEDS: Cefepime HCl 1,000 MG in Water for inj. (sterile) 10 ML IVP SCH (05:38)
[2021-01-07] MEDS ORDERED: Calcium Gluconate 1gm/50mL 1 GM/50 ML BAG IVPB PRN (06:00)
[2021-01-07 07:04] VITALS: PULSE 88
[2021-01-07 07:31] VITALS: BP 112/55
[2021-01-07] MEDS ORDERED: SODIUM ZIRCONIUM CYCLOSILICATE 5 GM POWD.PACK PO SCH (09:00)
== END 2021-01-07 09:24 | disposition expired | DRG 207 ==
LOC: 2NNU → SUATTDRO 18:29 → ICNU 12-29 15:42
PROVIDERS: ADMIT Internal Medicine; ATTEND Internal Medicine